=== PATIENT | male | born 1985 | race Caucasian/White ===

== ENCOUNTER 2017-07-03 18:07 | Emergency (ER) | payer OTHER, SELFPAY ==
[2017-07-03 18:13] VITALS: BP 135/72; PULSE 72; RESP 18; TEMP 36.8; O2SAT 98; BMI 26.6
--- NOTE | 2017-07-03 18:15 | HMH.EDEYEP ---
ED Disposition Clinical Impression: Acute follicular conjunctivitis of right eye Disposition: Home, Self-Care Condition on Discharge: Fair Additional Instructions: 1- eye rest. 2- cold compresses 3- start abx eye drops. 4- call eye docotor for full eye exam on Wednesday. 5- return if needed. Prescriptions: Ciprofloxacin HCl [Ciprofloxacin 0.3% Ophth Soln] 1 - 2 drops OP Q4HWA #1 ml - Critical Care Critical Care Time: No Attestation: On , the high probability of a clinically significant, sudden or life threatening deterioration of the following system(s) required my full and direct attention, intervention and personal management. The time I documented below is in addition to time spent performing reported procedures but includes the following listed in this critical care notation. Medical Decision Making - Laci Inquiry Pt receiving controlled substance: No Laci was queried for this patient: No Medical Decision Making Narrative: Discussed with the patient his I care and follow-up, I was more in favor that this is an allergy but he wanted to be on antibiotic. I advised him that I will start antibiotics but he will need to follow-up with the eye doctor for full exam he agreed. 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 He denies any pain. chief complaint: eye redness Onset (ago): day(s) (strated Yesterday) Onset description: gradual Duration: constant Location: right eye Eye Symptoms: redness Place: home Mechanism: none Associated symptoms: none Treatments Prior to Arrival: none - Related Data Patient tetanus UTD: No Previous Rx's Medication Instructions Recorded Ciprofloxacin HCl [Ciprofloxacin 1 - 2 drops OP Q4HWA #1 ml 07/03/17 0.3% Ophth Soln] Allergies Allergy/AdvReac Type Severity Reaction Status Date / Time No Known Allergies Allergy Unverified 04/13/17 15:09 [facility] History I have reviewed the patient's past medical history: Yes ROS Obtained: Yes All systems reviewed & no additional complaints Physical Exam - General General appearance: alert, in no apparent distress - Head Head exam: atraumatic, normocephalic, normal inspection - Eye Eye exam: Present: PERRL, EOMI, conjunctival injection, other (Follicular lesions at the fornix, no foreign bodies. ) - ENT ENT exam: Present: normal exam, normal oropharynx, mucous membranes moist, TM's normal bilaterally, normal external ear exam - Neck Neck exam: Present: normal inspection, full ROM, trachea midline. Absent: meningismus, lymphadenopathy - Chest Chest inspection: Present: normal inspection, symmetric chest wall rise. Absent: tenderness - Respiratory Respiratory exam: Present: normal lung sounds bilaterally. Absent: respiratory distress - Cardiovascular Cardiovascular exam: Present: regular rate, normal rhythm. Absent: JVD - Abdominal Exam Abdominal exam: Present: soft, normal bowel sounds. Absent: distention, tenderness, guarding - Extremities Exam Extremities exam: Present: normal inspection, full ROM, normal capillary refill. Absent: calf tenderness - Back Exam Back exam: Present: normal inspection. Absent: tenderness - Neurological Exam Neurological exam: Present: alert, oriented X3, CN II-XII intact, normal gait, motor sensory deficit - Psychiatric Psychiatric exam: Present: normal affect, normal mood - Skin Skin exam: Present: warm, dry, intact, normal color - Lymphatic Lymphatic Findings: no adenopathy
--- NOTE | 2017-07-03 18:18 | ED_ITS ---
ED Disposition Clinical Impression: Acute follicular conjunctivitis of right eye Disposition: Home, Self-Care Condition on Discharge: Fair Additional Instructions: 1- eye rest. 2- cold compresses 3- start abx eye drops. 4- call eye docotor for full eye exam on Wednesday. 5- return if needed. Prescriptions: Ciprofloxacin HCl [Ciprofloxacin 0.3% Ophth Soln] 1 - 2 drops OP Q4HWA #1 ml - Critical Care Critical Care Time: No Attestation: On , the high probability of a clinically significant, sudden or life threatening deterioration of the following system(s) required my full and direct attention, intervention and personal management. The time I documented below is in addition to time spent performing reported procedures but includes the following listed in this critical care notation. Medical Decision Making - Laci Inquiry Pt receiving controlled substance: No Laci was queried for this patient: No Medical Decision Making Narrative: Discussed with the patient his I care and follow-up, I was more in favor that this is an allergy but he wanted to be on antibiotic. I advised him that I will start antibiotics but he will need to follow-up with the eye doctor for full exam he agreed. 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 He denies any pain. chief complaint: eye redness Onset (ago): day(s) (strated Yesterday) Onset description: gradual Duration: constant Location: right eye Eye Symptoms: redness Place: home Mechanism: none Associated symptoms: none Treatments Prior to Arrival: none - Related Data Patient tetanus UTD: No Previous Rx's Medication Instructions Recorded Ciprofloxacin HCl [Ciprofloxacin 1 - 2 drops OP Q4HWA #1 ml 07/03/17 0.3% Ophth Soln] Allergies Allergy/AdvReac Type Severity Reaction Status Date / Time No Known Allergies Allergy Unverified 04/13/17 15:09 [facility] History I have reviewed the patient's past medical history: Yes ROS Obtained: Yes All systems reviewed & no additional complaints Physical Exam - General General appearance: alert, in no apparent distress - Head Head exam: atraumatic, normocephalic, normal inspection - Eye Eye exam: Present: PERRL, EOMI, conjunctival injection, other (Follicular lesions at the fornix, no foreign bodies. ) - ENT ENT exam: Present: normal exam, normal oropharynx, mucous membranes moist, TM's normal bilaterally, normal external ear exam - Neck Neck exam: Present: normal inspection, full ROM, trachea midline. Absent: meningismus, lymphadenopathy - Chest Chest inspection: Present: normal inspection, symmetric chest wall rise. Absent : tenderness - Respiratory Respiratory exam: Present: normal lung sounds bilaterally. Absent: respiratory distress - Cardiovascular Cardiovascular exam: Present: regular rate, normal rhythm. Absent: JVD - Abdominal Exam Abdominal exam: Present: soft, normal bowel sounds. Absent: distention, tenderness, guarding - Extremities Exam Extremities exam: Present: normal inspection, full ROM, normal capillary refill. Absent: calf tenderness - Back Exam Back exam: Present: normal inspection. Absent: tenderness - Neurological Exam Neurological ex
[2017-07-03 18:24] VITALS: BP 124/78; PULSE 72; RESP 18; TEMP 36.9; O2SAT 96
== END 2017-07-03 19:05 | disposition home or self-care (01) ==
LOC: ER 18:27
PROVIDERS: Emergency Provider Emergency Medicine; Family Provider Family Medicine
DX: H10.011 Acute follicular conjunctivitis, right eye (principal)
CPT/HCPCS: 99281

== ENCOUNTER 2023-04-03 05:16 | Observation (INO) | payer OTHER, SELFPAY ==
[2023-04-03] VITALS (21 sets, daily range): BP systolic 119–159; BP diastolic 68–88; PULSE 55–73; RESP 16–18; TEMP 36.5–37.3; O2SAT 95–99; BMI 28.7
--- NOTE | 2023-04-03 | IR_ITS ---
APPROVED REPORT Patient Location: Inpatient Inpatient Cost Engineer: OSBALDO Carmona RT (R) PROCEDURES Left heart catheterization INDICATION Non-STEMI Informed consent was obtained prior to the procedure. COMPLICATIONS None Estimated Blood Loss: Less than 10 ml TECHNIQUE One percent lidocaine used to anesthetize the right anterior aspect of the wrist. The right radial artery was accessed via the Seldinger technique. A 6 Vietnamese sheath was placed in the right radial artery. 2.5 mg of Verapamil, 800 mcg of nitroglycerin, 1mg Lidocaine and 5000 U Heparin were given through the arterial sheath. The papa catheter was also used to perform left heart catheterization, left ventriculogram and selective coronary angiogram. At the end of the procedure the sheath was removed good hemostasis was achieved using Traclet band, patient was transferred to the postop holding area in stable condition. ANGIOGRAPHIC RESULTS The left main artery Was a large vessel was divided in the circumflex and LAD. There is no significant disease in left main. The left anterior descending artery There is a large vessel which supplies a single large diagonal. At the ostium of the LAD there is a 30% stenosis. In the distal LAD there was 40 to 50% stenosis The circumflex artery Was a large vessel which supplied 2 obtuse marginals. In the second smaller obtuse marginal there appeared to be about a 40% stenosis. The right coronary artery Was a dominant vessel which supplied a large PDA. There was a 50 to 60% stenosis in the mid RCA. The CASILLAS ventriculogram reveals Hyperdynamic LV The left ventricular end-diastolic pressure 12 mmHg After reviewing the films decision was made to perform FFR in the right coronary artery. The lesion was crossed with the assist FFR system. The FFR 140 mg/g/min of adenosine was 0.88. This is nonsignificant. Therefore the lesion was deferred. IMPRESSION Moderate triple-vessel coronary artery disease but no significant obstructive disease. Preserved LV function Electronically signed by : Yuri Vitale, 04/03/2023 09:20:40
--- NOTE | 2023-04-03 05:23 | PC.NURSE ---
PT ARRIVED TO FLOOR AT THIS TIME
--- NOTE | 2023-04-03 05:32 | ECG_ITS ---
APPROVED REPORT Exam: Resting ECG HR:73 bpm ECG Measurements Heart Rate 73 AXES NM 157 P 77 QRSd 100 QRS 91 QT 384 T 62 QTc 409 Conclusion SINUS RHYTHM WITH SINUS ARRHYTHMIA BORDERLINE RIGHT AXIS DEVIATION [QRS AXIS > 90] NONSPECIFIC ST ELEVATION [0.05+ mV ST ELEVATION] BORDERLINE ECG UNCONFIRMED REPORT Electronically signed by : Laurent Gonsales MD 04/06/2023 16:52:52
--- NOTE | 2023-04-03 06:23 | EXP.HP ---
History of Present Illness *Admission Date: 04/03/23 *Reason for visit:: Chest pain *History of present illness: This is a very pleasant 38-year-old male with no significant past medical history except for tobacco abuse who [facility] further evaluation of NSTEMI. Patient reports several days ago he developed midsternal chest pain that was pressure-like in nature. He reported there was no aggravating or alleviating factors to his pain. He states that he woke up from a nap around 2 PM with chest pain and states that he had some episodes of diaphoresis with this. He sought treatment in the emergency department 3 days ago and was told that he had a notable cardiac arrhythmia intermittently while he was in the emergency department on 03/31. Transfer was attempted at that time but patient declined further workup and was discharged home. He presented back to [facility] today with similar pain. Upon arrival to the emergency department he was noted to be pain-free. No cardiac arrhythmias or ectopy noted on his bedside monitor while in the emergency department but he was noted to have ST depression in aVL. He endorses tobacco use since he was 13 years old smoking approximately 1 pack a day. He also endorses daily marijuana as well. Laboratory evaluation remarkable for elevated troponin of 3177, CPK of 2.51. 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 He was transferred here for further evaluation management. Upon arrival here he is noted to have midsternal chest pain. He received heparin, aspirin and Brilinta at the outside hospital. At the time of admission, repeat labs [facility] Disclaimer: The information contained in this section may have been updated after the patient was seen, as this information can be updated by other users. Surgical History H/O skin graft Family History Mother Stroke Social History (Updated 04/03/23 @ 05:51 by Mar Romero RN) Smoking Status: Current every day smoker tobacco type: cigarettes packs per day: 1 alcohol intake: never substance use type: marijuana current occupational status: other Travel in the last 8 weeks: None caffeine: No Review of Systems Constitutional Constitutional: Denies fever(s), Denies lethargy and Denies night sweats Eyes Eyes: Reports system reviewed and no additional complaints, except as documented ENT Ears, Nose, Mouth, and Throat: Reports system reviewed and no additional complaints, except as documented *Cardiovascular Cardiovascular: Reports chest pain, Reports chest pain at rest, Reports chest pain with activity, Reports dyspnea and Reports rapid heart rate *Respiratory Respiratory: Reports cough and Reports dyspnea *Gastrointestinal Gastrointestinal: Reports system reviewed and no additional complaints, except as documented *Genitourinary Genitourinary: Reports system reviewed and no additional complaints, except as documented *Musculoskeletal Musculoskeletal: Reports system reviewed and no additional complaints, except as documented *Neurologic Neurologic: Reports system reviewed and no additional complaints, except as documented Endocrine Endocrine: Reports system reviewed and no additional complaints, except as documented Meds Home Medications and Allergies Home Medications Medication Instructions Recorded Confirmed Type ciprofloxacin HCl 0.3 % eye drops 1 - 2 drops OP Q4HWA #1 mL 07/03/17 Rx New Prescriptions to Start Prescriptions: Allergies Allergy/AdvReac Type Severity Reaction Status Date / Time No Known Allergies Allergy Unverified 04/13/17 15:09 Exam Data for Last 24 hours Vital signs and Labs for Last 24 Hours: Temp Pulse Resp BP Pulse Ox O2 Del Method 98.5 F 73 18 159/82 H 99 Room
[2023-04-03 07:02] LABS: Basophils # 0.1 K/mm3 (0-0.2); Basophils % 0.4 % (0.1-2.0); Eosinophils # 0.3 K/mm3 (0.0-0.4); Hematocrit 43.4 % (42.0-52.0); Hemoglobin 14.8 g/dL (14.1-18.0); Lymphocytes # 2.3 K/mm3 (0.7-4.5); Lymphocytes % 14.8 % (10-50); Mean Corpuscular Hemoglobin 33.4 pg (27.0-31.2); Mean Corpuscular Volume 98.2 fl (80-94); Mean Platelet Volume 9.6 fl (7.4-10.4); Monocytes # 0.9 K/mm3 (0.1-1.0); Monocytes % 5.8 % (1.7-9.3); Neutrophils # 11.8 K/mm3 (1.8-7.8); Platelet Count 281 K/mm3 (142-424); Red Blood Count 4.42 M/mm3 (4.60-6.20); Red Cell Distribution Width 13.6 % (11.5-17.5); White Blood Count 15.3 K/mm3 (4.8-10.8)
[2023-04-03 07:05] LABS: Chloride 106 mmol/L (98-107)
[2023-04-03 07:06] LABS: Potassium 3.9 mmoL/L (3.5-5.1); Sodium 137 mmol/L (136-145)
[2023-04-03 07:08] LABS: Alanine Aminotransferase 29 U/L (12-78); Alkaline Phosphatase 103 U/L (38-126); Aspartate Amino Transferase 50 U/L (17-59); Bilirubin,Total 1.1 mg/dl (0.2-1.3); Blood Urea Nitrogen 8 mg/dl (9-20); Creatinine Clearance Estimated 153 mL/min (50-200); Estimated Glomerular Filt Rate 109 ml/min (>60); GFR (African American) 132 ML/MIN (>60)
[2023-04-03 07:09] LABS: Albumin Level 4.8 g/dl (3.5-5.0); Albumin/Globulin Ratio 1.4 (1.1-1.8); Anion Gap 11.9 mEq/L (5-15); Calcium 9.1 mg/dl (8.4-10.2); Carbon Dioxide 23 mmol/L (22.0-30.0); Globulin 3.4 g/dL (1.3-3.2); Glucose 112 mg/dl (74-100); Total Protein,Serum 8.2 g/dl (6.3-8.2)
[2023-04-03 07:10] LABS: INR 1.02 (0.9-1.1)
[2023-04-03 07:11] LABS: MANUAL DIFFERENTIAL MANUAL DIFFERENTIAL (MANUAL DIFF)
[2023-04-03 07:18] LABS: PTT Heparin (inpatient only) 29.3 Seconds (23.6-34.0)
[2023-04-03 07:24] LABS: Troponin I 2.49 ng/ml (0.00-0.034)
--- NOTE | 2023-04-03 07:31 | PC.NURSE ---
Called the critical tropnin to Dr Rob, Was told to call cardiology, Aby Arce RN is going to call cardiology
--- NOTE | 2023-04-03 07:35 | PC.NURSE ---
paged cardiology regarding troponin results.
--- NOTE | 2023-04-03 07:38 | PC.NURSE ---
spoke with [place]. calling in lab assistant team. repeat EKG. 180 of brilinta and 325 asa
[2023-04-03 07:39] LABS: Thyroid Stimulating Hormone 1.13 uIU/mL (0.465-4.68)
--- NOTE | 2023-04-03 07:44 | ECG_ITS ---
APPROVED REPORT Exam: Resting ECG HR:67 bpm ECG Measurements Heart Rate 67 AXES TN 162 P 74 QRSd 116 QRS 85 QT 382 T 64 QTc 397 Conclusion SINUS RHYTHM MODERATE INTRAVENTRICULAR CONDUCTION DELAY [110+ ms QRS DURATION] BORDERLINE ECG UNCONFIRMED REPORT Electronically signed by : Laurent Gonsales MD 04/04/2023 14:18:28
[2023-04-03 07:51] LABS: Cholesterol 226 mg/dl (140-200); Triglycerides 105 mg/dl (30-150); VLDL Cholesterol 21 mg/dL (0-40)
[2023-04-03 07:52] LABS: Chol/HDL Ratio 8.1 (1-3.5); HDL Cholesterol 28 mg/dl (40-60)
[2023-04-03 08:02] LABS: Direct LDL Cholesterol 173.55 mg/dL (100-129)
[2023-04-03 08:05] LABS: Eosinophils % 4 % (0-3); Lymphocytes % 15 % (10-50); Monocytes % 6 % (2-9); Neutrophils % 75 % (42-76); Total Cells Counted 100
[2023-04-03 08:06] LABS: Platelet Estimate Normal; RBC Morphology Normal
[2023-04-03 08:14] LABS: Hemoglobin A1C 5.3 % (4.0-6.0)
--- NOTE | 2023-04-03 08:14 | PC.NURSE ---
#20 initiated to RFA x1 attempt.
--- NOTE | 2023-04-03 08:15 | PC.NURSE ---
pt has been npo since 0 yesterday per him
--- NOTE | 2023-04-03 08:16 | PC.NURSE ---
pt does not want me to contact any family @ this time.
--- NOTE | 2023-04-03 08:28 | PC.NURSE ---
pt off floor with cath team
[2023-04-03 10:30] LABS: Troponin I 2.59 ng/ml (0.00-0.034)
[2023-04-03 11:35] LABS: Magnesium 1.9 mg/dl (1.6-2.3)
--- NOTE | 2023-04-03 11:53 | PC.NURSE ---
pt is doing well post cath. he denies any pain @ this time. radial site is clean and intact. vs stable
--- NOTE | 2023-04-03 16:02 | EXP.DC.SUM ---
General Admission date:: 04/03/23 Discharge date: 04/03/23 HPI HPI HPI: This is a very pleasant 38-year-old male with no significant past medical history except for tobacco abuse who presents as a transfer from [facility] for further evaluation of NSTEMI. Patient reports several days ago he developed midsternal chest pain that was pressure-like in nature. He reported there was no aggravating or alleviating factors to his pain. He states that he woke up from a nap around 2 PM with chest pain and states that he had some episodes of diaphoresis with this. He sought treatment in the emergency department 3 days ago and was told that he had a notable cardiac arrhythmia intermittently while he was in the emergency department on 03/31. Transfer was attempted at that time but patient declined further workup and was discharged home. He presented back to [facility] today with similar pain. Upon arrival to the emergency department he was noted to be pain-free. No cardiac arrhythmias or ectopy noted on his bedside monitor while in the emergency department but he was noted to have ST depression in aVL. He endorses tobacco use since he was 13 years old smoking approximately 1 pack a day. He also endorses daily marijuana as well. Laboratory evaluation remarkable for elevated troponin of 3177, CPK of 2.51. 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 He was transferred here for further evaluation management. Upon arrival here he is noted to have midsternal chest pain. He received heparin, aspirin and Brilinta at the outside hospital. At the time of admission, repeat labs Hospital Course Hospital Course Hospital Course: This is a very pleasant 38-year-old male with no significant past medical history except for tobacco abuse who presents as a transfer from [facility] for further evaluation of NSTEMI. Patient reports several days ago he developed midsternal chest pain that was pressure-like in nature. He reported there was no aggravating or alleviating factors to his pain. He states that he woke up from a nap around 2 PM with chest pain and states that he had some episodes of diaphoresis with this. He sought treatment in the emergency department 3 days ago and was told that he had a notable cardiac arrhythmia intermittently while he was in the emergency department on 03/31. Transfer was attempted at that time but patient declined further workup and was discharged home. He presented back to [facility] today with similar pain. Upon arrival to the emergency department he was noted to be pain-free. No cardiac arrhythmias or ectopy noted on his bedside monitor while in the emergency department but he was noted to have ST depression in aVL. He endorses tobacco use since he was 13 years old smoking approximately 1 pack a day. He also endorses daily marijuana as well. Laboratory evaluation remarkable for elevated troponin of 3177, CPK of 2.51. 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 He was transferred here for further evaluation management. Patient had Cardiac cath which was unremarkable per cardiology, no stents needed, I recommended performing echocardiography( I explained imprortance of doing echo and risks of not doing echo he verbalized understanding) to the patient but he does not want to stay but wishes to be discharged and mention he will follow up with the appointment\ with cardiology and establish PCP Patient was seen and evaluated at the bedside on the day of discharge. Patient is stable for discharge. Patient wishes to be discharged. All patient questions were answered and patient was given time to ask questions. Patient was discharged in stable condition. Patient understands that she can return to ER in case of any sudden changes in health. Total time spent on DC - 38 mins Exam Data for
--- NOTE | 2023-04-03 17:07 | PC.NURSE ---
pt has been received discharge education. awaiting a ride
--- NOTE | 2023-04-06 11:32 | CARE MANAGER ---
Patient called back related to hospital discharge. He did not have any new medications and I transferred him to cardiology to schedule a follow up appointment. Denies questions or concerns at this time. RAQUEL Roy
== END 2023-04-03 17:55 | disposition home or self-care (01) ==
PROVIDERS: Internal Medicine; Nurse Practitioner Acute Care; Admitting Provider Internal Medicine Adolescent Medicine; Visit Provider Internal Medicine Adolescent Medicine
DX: I21.4 Non-ST elevation (NSTEMI) myocardial infarction (principal); F17.210 Nicotine dependence, cigarettes, uncomplicated; F12.90 Cannabis use, unspecified, uncomplicated
CPT/HCPCS: 80053; 80061; 83036; 83735; 84439; 84443; 84484; 85007; 85025; 85610; 85730; 93005; 93458; 93571; 99152; 99153; C1725; C1769; G0378; J0153; J1644; Q9967

== ENCOUNTER → 2023-04-08 10:50 | Outpatient (CLI) | payer OTHER, SELFPAY | PROVIDERS: Visit Provider Physician Assistant | DX: I11.9 Hypertensive heart disease without heart failure (principal); I25.10 Atherosclerotic heart disease of native coronary artery without angina pectoris; I47.20 Ventricular tachycardia, unspecified; R00.2 Palpitations; R94.31 Abnormal electrocardiogram [ECG] [EKG]; E78.5 Hyperlipidemia, unspecified; Z72.0 Tobacco use | CPT/HCPCS: 93270 ==

== ENCOUNTER → 2023-04-21 15:05 | Outpatient (CLI) | payer OTHER, SELFPAY ==
--- NOTE | 2023-04-21 15:05 | CA_ITS ---
APPROVED REPORT EXAM: Comprehensive 2D, Doppler, and color-flow Echocardiogram Glass Cut Off Tender: GEORGIE Graves, RVS Ht: 5 ft 8 in Wt: 197lbs BSA: 2.03 BP: 120/78 mmHg Indications: CAD, Abn EKG, Hx-Vtach, Smoker, HTN, HLD, Palpitation, SOB Echo Enhancing Agent Comments: Technically difficult exam due to multiple machine failures, unable to preform Bubble study due to malfunctions 2D Dimensions Aortic Root 3.15 cm M: 3.1 - 3.7 LA Volume 48.80 mL Left Atrium 2.92 cm M: 3.0 - 4.0 LA Volume Index 24.04 mL/m2 (M/F) 16-34 RVID Base (AP4) 2.77 cm (M/F) 2.5-4.1 EF AP4 52.10 % LVOT 2.14 cm (M/F) 1.5-2.5 GL Strain -24.9 % M-Mode Dimensions RVDd 2.38 cm (0.9-2.6) LVDd 5.22 cm (3.5-5.7) Ao Diam 3.13 cm (2.0-3.7) LVDs 3.48 cm (3.5-5.7) IVSd 0.94 cm (0.6-1.1) PWd 0.90 cm (0.6-1.1) EF (Teich) 61.60% EPSs 0.91 cm FS 33.30% EDV (Teich) 130.70 mL TAPSE 2.67 (<1.7) ESV (Teich) 50.20 mL LV Diastology E Decel Time 169 (160-240 msec) E/A Ratio 1.2 MED E' 12.8 (>= 7 cm/sec) MED A' 10.10 cm/s E'/MED E' Ratio 5.67 (<= 14) LAT E' 16.8 (>= 10 cm/sec) LAT A' 7.40 cm/s E/LAT E' Ratio 4.32 (<= 14) Mitral Valve MV E Max Stephan. 73.0 (40-130 cm/s) MV A Velocity 60.0 (40-130 cm/s) E/A Ratio 1.21 MV Decel. Time 169 (160-240 ms) Pulmonary Valve MN End VMAX 157.0 cm/s Left Ventricle The left ventricle is normal size. The left ventricular systolic function is normal. The left ventricular ejection fraction is within the normal range. There is normal left ventricular wall thickness. There is normal LV segmental wall motion. The left ventricular diastolic function is normal. LVEF is 55%. Right Ventricle The right ventricle is normal size. The right ventricular systolic function is normal. Atria The left atrium size is normal. The right atrium size is normal. There is no Doppler evidence of interatrial shunt. Aortic Valve The aortic valve is normal in structure. The aortic valve is trileaflet. There is no aortic valvular stenosis. No aortic regurgitation is present. Mitral Valve The mitral valve is normal in structure. No evidence of mitral valve stenosis. Trace mitral regurgitation. Tricuspid Valve The tricuspid valve leaflets are thin and pliable. Trace tricuspid regurgitation. There is insufficient TR jet to estimate RVSP. Pulmonic Valve The pulmonary valve is normal in structure. Mild pulmonic regurgitation. Great Vessels The aortic root is normal in size. The ascending aorta is normal in size. IVC is normal in size and collapses >50% with inspiration. Pericardium There is no pericardial effusion. Other Information Study Quality: Technically Limited Conclusion Normal biventricular systolic function. No significant valvular stenosis or regurgitation. No Doppler evidence of interatrial shunt, unable to preform Bubble study due to malfunction during the exam. Electronically signed by : Shana Segovia MD 04/24/2023 22:39:58
== END ==
LOC: RT 15:05
PROVIDERS: PCP Internal Medicine; Visit Provider Physician Assistant
DX: I11.9 Hypertensive heart disease without heart failure (principal); I25.10 Atherosclerotic heart disease of native coronary artery without angina pectoris; I47.20 Ventricular tachycardia, unspecified; R00.2 Palpitations; R94.31 Abnormal electrocardiogram [ECG] [EKG]; E78.5 Hyperlipidemia, unspecified; Z72.0 Tobacco use
CPT/HCPCS: 93306

== ENCOUNTER 2023-08-05 18:11 | Emergency (ER) | payer OTHER, SELFPAY ==
--- NOTE | 2023-08-05 18:06 | ECG_ITS ---
APPROVED REPORT Exam: Resting ECG HR:62 bpm ECG Measurements Heart Rate 62 AXES OH 159 P 78 QRSd 100 QRS 95 QT 422 T 75 QTc 428 Conclusion SINUS RHYTHM BORDERLINE RIGHT AXIS DEVIATION [QRS AXIS > 90] -Hope Gaona MD Electronically signed by : HOPE GAONA, 08/05/2023 23:37:47
[2023-08-05 18:11] VITALS: BP 162/96; PULSE 64; RESP 22; TEMP 36.5; O2SAT 98; BMI 28.8
--- NOTE | 2023-08-05 18:13 | ED_ITS ---
Discharge Plan Disposition Patient Disposition: Left Against Medical Advice Chief Complaint: Chest Pain Prescriptions Prescriptions: No Action aspirin [Adult Low Dose Aspirin] 81 mg tablet,delayed release (DR/EC) 81 mg PO DAILY Qty: 90 3RF losartan 25 mg tablet 25 mg PO DAILY Qty: 90 3RF metoprolol succinate 25 mg tablet extended release 24 hr 25 mg PO QDAY Qty: 90 3RF clopidogrel [Plavix] 75 mg tablet 75 mg PO QDAY Qty: 90 3RF atorvastatin 40 mg tablet 40 mg PO DAILY Qty: 90 3RF pantoprazole [Protonix] 40 mg tablet,delayed release (DR/EC) 40 mg PO DAILY Qty: 90 3RF Referrals Follow up/Referrals: Jesus Williamson MD [Staff Physician] - See instructions Provider,MD Eileen [Primary Care Provider] - See instructions Clinical Impressions Clinical Impression: Left against medical advice Instructions Patient Instructions: DI for Heart Attack Discharge ED Provider: Hope Gaona HPI <DON Wills - Last Filed: 08/05/23 18:13> General Chief Complaint: Chest Pain Stated Complaint: Chest Pressure Time Seen by Provider: 08/05/23 18:13 Related Data Previous Rx's Medication Instructions Recorded aspirin 81 mg tablet,delayed 81 mg PO DAILY #90 tabs 04/08/23 release (Adult Low Dose Aspirin) atorvastatin 40 mg tablet 40 mg PO DAILY #90 tabs 04/08/23 clopidogrel 75 mg tablet (Plavix) 75 mg PO QDAY #90 tabs 04/08/23 losartan 25 mg tablet 25 mg PO DAILY #90 tabs 04/08/23 metoprolol succinate 25 mg 25 mg PO QDAY #90 tabs 04/08/23 tablet,extended release 24 hr pantoprazole 40 mg tablet,delayed 40 mg PO DAILY #90 tabs 04/15/23 release (Protonix) Allergies Allergy/AdvReac Type Severity Reaction Status Date / Time No Known Allergies Allergy Verified 04/15/23 11:48 <Hope Gaona MD - Last Filed: 08/05/23 23:01> History of Present Illness HPI narrative: 38-year-old male with previous medical history of NSTEMI and tobacco use presents with 1 hour of sudden onset chest pain that radiates to his back, shortness of breath, nausea, generalized weakness. He states this feels similar to the prior episode of chest pain that was associated with an NSTEMI in March. He was playing fortnight when this began, not exerting himself. Patient states only drug use today was marijuana. No shortness of breath, palpitations, recent fevers, or other complaints. [facility] <DON Wills - Last Filed: 08/05/23 18:13> [facility] Disclaimer: The information contained in this section may have been updated after the patient was seen, as this information can be updated by other users. Medical History NSTEMI (non-ST elevated myocardial infarction) HLD (hyperlipidemia) HTN (hypertension) Abnormal electrocardiogram [ECG] [EKG] Coronary artery disease Tobacco abuse Type 1 myocardial infarction Acute follicular conjunctivitis of right eye Surgical History H/O skin graft Family History Mother Stroke Social History Smoking Status: Current every day smoker tobacco type: cigarettes packs per day: 1 alcohol intake: never substance use type: marijuana current occupational status: other Travel in the last 8 weeks: None caffeine: No <DON Wills - Last Filed: 08/05/23 18:13> ROS Obtained: Yes Systems reviewed as appropriate & no additional complaints except as documented Physical Exam <DON Wills - Last Filed: 08/05/23 18:13> General General appearance: alert and in no apparent distress Head Head exam: atraumatic and normal inspection Eye Eye exam: Present normal appearance, PERRL and EOMI ENT ENT exam: Present normal exam, normal oropharynx and mucous membranes moist Neck Neck exam: Present normal inspection, full ROM and trachea midline; Absent lymphadenopathy Chest Chest inspection: Present normal inspection and symmetric chest wall rise Respiratory Respiratory exam: Present normal lung sounds bilaterally; Absent accessory muscle use Cardiovascular Cardiovascular exam: Present regular rate, normal rhythm, normal heart sounds, +S1 and +S2 Abdominal Exam Abdominal exam: Present soft and normal bowel sounds; Absent tenderness, guarding or rebound Extremities Exam Extremities exam: Present normal inspection and full ROM Neurological Exam Neurological exam: Present alert, oriented X3 and CN II-XII intact Psychiatric Psychiatric exam: Present normal affect and normal mood Skin Skin exam: Present warm, dry and normal color Lymphatic Lymphatic Findings: no adenopathy <Hope Gaona MD - Last Filed: 08/05/23 23:01> General General appearance: other (Uncomfortable and toxic appearing. Moderate tachypnea.) ENT ENT exam: Present mucous membranes dry Neurological Exam Neurological exam: Absent motor sensory deficit HEART Score <Hope Gaona MD - Last Filed: 08/05/23 23:01> HEART Score HEART Score assessment performed?: Yes History (anamnesis): Highly suspicious ECG: Normal Age: <45 years Risk factors: Atherosclerosis history Troponin: > 3x normal limit HEART Score: 6 Critical Care <Hope Gaona MD - Last Filed: 08/05/23 23:01> Critical Care Time Critical Care Time: Yes Attestation: On 08/05/23, the high probability of a clinically significant, sudden or life threatening deterioration of the following system(s) required my full and direct attention, intervention and personal management. The time I documented below is in addition to time spent performing reported procedures but includes the following listed in this critical care notation. Total Time Total Critical Care Time: 30 Medical Decision Making <DON Wills - Last Filed: 08/05/23 18:13> Vital Signs Vital Signs: 08/05/23 18:11 08/05/23 19:30 08/05/23 20:00 Temperature 97.7 F Temperature Source Oral Pulse Rate 64 61 Pulse Rate [Right] 64 Respiratory Rate 22 13 13 Blood Pressure 134/81 147/89 H Blood Pressure [Right Arm] 162/96 H Blood Pressure Mean [Right Arm] 118 Blood Pressure Source [Right Arm] Automatic Cuff Blood Pressure Position [Right Arm] Supine 02 Sat by Pulse Oximetry 98 98 100 Oxygen Delivery Method Room Air 08/05/23 21:31 Temperature Temperature Source Pulse Rate 71 Pulse Rate [Right] Respiratory Rate 23 Blood Pressure 133/79 Blood Pressure [Right Arm] Blood Pressure Mean [Right Arm] Blood Pressure Source [Right Arm] Blood Pressure Position [Right Arm] 02 Sat by Pulse Oximetry 98 Oxygen Delivery Method Lab Data Labs: Lab Results 04/11/24 18:27: WBC 12.6 H, RBC 4.79, Hgb 16.3, Hct 48.7, MCV 101.6 H, MCH 33.9 H, MCHC 33.4, RDW 14.2, Plt Count 390, MPV 9.6, Neut % (Auto) 69.6, Lymph % (Auto) 21.8, Jackson % (Auto) 4.7, Eos % (Auto) 3.0, Baso % (Auto) 0.9, Neut # (Auto) 8.7 H, Lymph # (Auto) 2.7, Jackson # (Auto) 0.6, Eos # (Auto) 0.4, Baso # (Auto) 0.1, VBG pH 7.50 H, VBG pCO2 26.6 L, VBG pO2 34.4, VBG HCO3 20.3 L, VBG Total CO2 21.1 L, VBG O2 Saturation 78.5 H, VBG Base Excess -2.8 L, VBG Lactic Acid 5.0 H, Sodium 138, Potassium 3.7, Chloride 105, Carbon Dioxide 21 L, Anion Gap 15.7 H, BUN 6 L, Creatinine 0.80, Estimated Creat Clear 154, Estimated GFR 109, Est GFR ( Amer) 132, Glucose 158 H, Calcium 10.2, Total Bilirubin 0.8, AST 46, ALT 65, Alkaline Phosphatase 152 H, Troponin I < 0.01, Total Protein 8.0, Albumin 4.8, Globulin 3.2, Albumin/Globulin Ratio 1.5 08/05/23 21:15: Troponin I 0.67 H 08/05/23 21:30: Urine Opiates Screen Positive H, Urine Methadone Screen Negative, Ur Barbituates Screen Negative, Ur Phencyclidine Scrn Negative, Ur Amphetamines Screen Negative, U Benzodiazepines Scrn Negative, Urine Cocaine Screen Negative, U Marijuana (THC) Screen Positive H 08/05/23 18:27 08/05/23 18:27 Response Orders (Tests/Meds): ED MEDICATIONS Generic Name Dose Route Start Last Admin Trade Name Freq PRN Reason Stop Dose Admin Sodium Chloride 10 ml 08/05/23 19:00 08/05/23 19:05 Sodium Chloride 0.9% 10ml Syr (Rad Only) IV 09/04/23 18:59 10 ml NEEDED PRN Administration Maintain IV Site Discontinued Medications Generic Name Dose Route Start Last Admin Trade Name Elicia PRN Reason Stop Dose Admin Acetaminophen 1,000 mg 08/05/23 18:26 08/05/23 18:39 Acetaminophen 1,000mg/100ml Vial IV 08/05/23 18:27 1,000 mg ONCE ONE Administration Aspirin 325 mg 08/05/23 22:37 Aspirin 325mg Tablet PO 08/05/23 22:38 ONCE ONE Clopidogrel Bisulfate 300 mg 08/05/23 22:37 Clopidogrel 300mg Tablet PO 08/05/23 22:38 ONCE ONE Lactated Ringer's 1,000 mls @ 999 mls/hr 08/05/23 18:29 08/05/23 18:39 Lactated Ringer's 1000 Ml Bag IV 08/05/23 19:29 999 mls/hr .Q1H1M ONE Administration Iopamidol 100 ml 08/05/23 19:00 08/05/23 19:05 Iopamidol-370 (76%);100ml Bottle IV 08/05/23 19:01 100 ml ONCE ONE Administration Morphine Sulfate 5 mg 08/05/23 18:26 08/05/23 18:40 Morphine 10mg/Ml Syringe IV 08/05/23 18:27 Not Given ONCE ONE Morphine Sulfate 4 mg 08/05/23 18:39 08/05/23 18:42 Morphine 4mg/Ml Syringe IV 08/05/23 18:40 4 mg ONCE ONE Administration Ondansetron HCl 4 mg 08/05/23 18:26 08/05/23 18:39 Ondansetron 4mg/2ml Vial IV 08/05/23 18:27 4 mg ONCE ONE Administration Sodium Chloride 50 ml 08/05/23 19:00 08/05/23 19:05 0.9 % Sodium Chloride 50 Ml Vial IV 08/05/23 19:01 50 ml ONCE ONE Administration ORDERS Category Date Time Status CT angio abdomen pelvis Stat Cat Scan 08/05/23 18:26 Completed CTA Chest [CT angio chest - dissection] Stat Cat Scan 08/05/23 18:26 Completed CBC [Complete Blood Count Auto Diff] Stat Lab 08/05/23 18:27 Completed CMP [Comprehensive Metabolic Panel] Stat Lab 08/05/23 18:27 Completed Trop I [Troponin I] Stat Lab 08/05/23 18:27 Completed Troponin I Q3H Lab 08/05/23 21:15 Completed Troponin I Q3H Lab 08/06/23 00:30 Ordered UDS [Drug Screen,Urine] Stat Lab 08/05/23 21:30 Completed Blood Culture Stat Micro 08/05/23 20:25 Received VBG [Venous Blood Gas] Stat RT 08/05/23 18:27 Completed <Hope Gaona MD - Last Filed: 08/05/23 23:01> Laci Inquiry Pt receiving controlled substance: No Laci was queried for this patient: No Vital Signs Vital Signs: 08/05/23 18:11 08/05/23 19:30 08/05/23 20:00 Temperature 97.7 F Temperature Source Oral Pulse Rate 64 61 Pulse Rate [Right] 64 Respiratory Rate 22 13 13 Blood Pressure 134/81 147/89 H Blood Pressure [Right Arm] 162/96 H Blood Pressure Mean [Right Arm] 118 Blood Pressure Source [Right Arm] Automatic Cuff Blood Pressure Position [Right Arm] Supine 02 Sat by Pulse Oximetry 98 98 100 Oxygen Delivery Method Room Air 08/05/23 21:31 Temperature Temperature Source Pulse Rate 71 Pulse Rate [Right] Respiratory Rate 23 Blood Pressure 133/79 Blood Pressure [Right Arm] Blood Pressure Mean [Right Arm] Blood Pressure Source [Right Arm] Blood Pressure Position [Right Arm] 02 Sat by Pulse Oximetry 98 Oxygen Delivery Method Lab Data Labs: Lab Results 08/05/23 18:27: WBC 12.6 H, RBC 4.79, Hgb 16.3, Hct 48.7, MCV 101.6 H, MCH 33.9 H, MCHC 33.4, RDW 14.2, Plt Count 390, MPV 9.6, Neut % (Auto) 69.6, Lymph % (Auto) 21.8, Jackson % (Auto) 4.7, Eos % (Auto) 3.0, Baso % (Auto) 0.9, Neut # (Auto) 8.7 H, Lymph # (Auto) 2.7, Jackson # (Auto) 0.6, Eos # (Auto) 0.4, Baso # (Auto) 0.1, VBG pH 7.50 H, VBG pCO2 26.6 L, VBG pO2 34.4, VBG HCO3 20.3 L, VBG Total CO2 21.1 L, VBG O2 Saturation 78.5 H, VBG Base Excess -2.8 L, VBG Lactic Acid 5.0 H, Sodium 138, Potassium 3.7, Chloride 105, Carbon Dioxide 21 L, Anion Gap 15.7 H, BUN 6 L, Creatinine 0.80, Estimated Creat Clear 154, Estimated GFR 109, Est GFR ( Amer) 132, Glucose 158 H, Calcium 10.2, Total Bilirubin 0.8, AST 46, ALT 65, Alkaline Phosphatase 152 H, Troponin I < 0.01, Total Protein 8.0, Albumin 4.8, Globulin 3.2, Albumin/Globulin Ratio 1.5 08/05/23 21:15: Troponin I 0.67 H 08/05/23 21:30: Urine Opiates Screen Positive H, Urine Methadone Screen Negative, Ur Barbituates Screen Negative, Ur Phencyclidine Scrn Negative, Ur Amphetamines Screen Negative, U Benzodiazepines Scrn Negative, Urine Cocaine Screen Negative, U Marijuana (THC) Screen Positive H Response Orders (Tests/Meds): ED MEDICATIONS Generic Name Dose Route Start Last Admin Trade Name Freq PRN Reason Stop Dose Admin Sodium Chloride 10 ml 08/05/23 19:00 08/05/23 19:05 Sodium Chloride 0.9% 10ml Syr (Rad Only) IV 09/04/23 18:59 10 ml NEEDED PRN Administration Maintain IV Site Discontinued Medications Generic Name Dose Route Start Last Admin Trade Name Freq PRN Reason Stop Dose Admin Acetaminophen 1,000 mg 08/05/23 18:26 08/05/23 18:39 Acetaminophen 1,000mg/100ml Vial IV 08/05/23 18:27 1,000 mg ONCE ONE Administration Aspirin 325 mg 08/05/23 22:37 Aspirin 325mg Tablet PO 08/05/23 22:38 ONCE ONE Clopidogrel Bisulfate 300 mg 08/05/23 22:37 Clopidogrel 300mg Tablet PO 08/05/23 22:38 ONCE ONE Lactated Ringer's 1,000 mls @ 999 mls/hr 08/05/23 18:29 08/05/23 18:39 Lactated Ringer's 1000 Ml Bag IV 08/05/23 19:29 999 mls/hr .Q1H1M ONE Administration Iopamidol 100 ml 08/05/23 19:00 08/05/23 19:05 Iopamidol-370 (76%);100ml Bottle IV 08/05/23 19:01 100 ml ONCE ONE Administration Morphine Sulfate 5 mg 08/05/23 18:26 08/05/23 18:40 Morphine 10mg/Ml Syringe IV 08/05/23 18:27 Not Given ONCE ONE Morphine Sulfate 4 mg 08/05/23 18:39 08/05/23 18:42 Morphine 4mg/Ml Syringe IV 08/05/23 18:40 4 mg ONCE ONE Administration Ondansetron HCl 4 mg 08/05/23 18:26 08/05/23 18:39 Ondansetron 4mg/2ml Vial IV 08/05/23 18:27 4 mg ONCE ONE Administration Sodium Chloride 50 ml 08/05/23 19:00 08/05/23 19:05 0.9 % Sodium Chloride 50 Ml Vial IV 08/05/23 19:01 50 ml ONCE ONE Administration ORDERS Category Date Time Status CT angio abdomen pelvis Stat Cat Scan 08/05/23 18:26 Completed CTA Chest [CT angio chest - dissection] Stat Cat Scan 08/05/23 18:26 Completed CBC [Complete Blood Count Auto Diff] Stat Lab 08/05/23 18:27 Completed CMP [Comprehensive Metabolic Panel] Stat Lab 08/05/23 18:27 Completed Trop I [Troponin I] Stat Lab 08/05/23 18:27 Completed Troponin I Q3H Lab 08/05/23 21:15 Completed Troponin I Q3H Lab 08/06/23 00:30 Ordered UDS [Drug Screen,Urine] Stat Lab 08/05/23 21:30 Completed Blood Culture Stat Micro 08/05/23 20:25 Received VBG [Venous Blood Gas] Stat RT 08/05/23 18:27 Completed ECG Data Tracing #1: ECG initial impression date: 08/05/23 ECG initial impression time: 18:08 ECG normal with no acute: arrhythmias, ischemia, conduction abnormalities, chamber hypertrophy Normal Sinus Rhythm: Yes MDM Narrative Medical Decision Narrative: Patient was evaluated immediately upon arrival and was concerning for his toxic appearance. Fingerstick blood glucose was 147. EKG was immediately obtained and showed normal sinus rhythm with no STEMI. His presentation was concerning for ACS, PE, aortic dissection given chest pain radiates to the back, NSTEMI, pneumothorax, endocrinologic and metabolic causes, and less likely but did consider sepsis given his discomfort, generalized weakness, and dry mucous membranes. For this reason obtained CTA chest abdomen pelvis emergently and labs including troponin, CBC, CMP, VBG. These I independently reviewed and interpreted and were significant for no aortic dissection or PE or pneumonia or pneumothorax or other emergent causes of chest pain. CBC and CMP and VBG were significant for respiratory alkalosis. Troponin initially was undetectable but on repeat was elevated concerning for NSTEMI. Chest pain had not resolved after receiving morphine. EKG I independently reviewed and interpreted was initially consistent with normal sinus rhythm and on repeat was again consistent with normal sinus rhythm obtained after troponin elevation. Due to concern for NSTEMI and patient having had an ischemic event when his chest pain had been severe, consulted cardiology with interactive discussion and they recommended admission for further testing in the morning. I discussed this with patient and after he initially agreed to admission he later stated that he had considered the risk of and disable meant and other complications but wanted to leave to be able to go home and smoke cigarettes. I discussed with him options including ensuring he gets food and something to drink and nicotine patches but patient is insistent upon leaving AGAINST MEDICAL ADVICE despite understanding the risk of and permanent disability. Discharged AGAINST MEDICAL ADVICE.
--- NOTE | 2023-08-05 18:15 | PC.NURSE ---
During triage pt began shouting I am not answering any more fucking questions . I let him know we are just trying to help him and unfortunately need to understand what brought about his chest pain and his medical history. He further stated Well I'm done, now fucking quit . Dr. Gaona made aware of him refusing to answer general questions regarding his reason for visit and PMH. EMS left phone number for pt's mother. I asked if he would like I us to call her or update her on his POC here and he shout Just stop .
--- NOTE | 2023-08-05 18:18 | PC.NURSE ---
bedside FS 147. Dr. Gaona at bedside
--- NOTE | 2023-08-05 18:25 | PC.NURSE ---
Attempting u/s guided IV placement
[2023-08-05 18:26] VITALS: BMI 28.8
--- NOTE | 2023-08-05 18:26 | CT_ITS ---
PROCEDURE INFORMATION: Exam: CTA Chest With Contrast Exam date and time: 08/05/2023 6:36 PM Age: 38 years old Clinical indication: Chest wall pain; Additional info: Chest pain radiating to back TECHNIQUE: Imaging protocol: Computed tomographic angiography of the chest with contrast. Exam focused on the arteries. 3D rendering (Not supervised by radiologist): MIP and/or 3D reconstructed images were created by the technologist. Radiation optimization: All CT scans at this facility use at least one of these dose optimization techniques: automated exposure control; mA and/or kV adjustment per patient size (includes targeted exams where dose is matched to clinical indication); or iterative reconstruction. Contrast material: ISOVUE 370; Contrast volume: 100 ml; Contrast route: INTRAVENOUS (IV); COMPARISON: CR CHEST SINGLE VIEW/PORTABLE 04/03/2023 3:27 AM FINDINGS: Pulmonary arteries: No CT evidence for pulmonary embolism. Aorta: Unremarkable. No aortic aneurysm. No aortic dissection. Lungs: No acute infiltrates. Small lung volumes with mild bibasilar atelectasis. Pleural spaces: Unremarkable. No pneumothorax. No pleural effusion. Heart: Unremarkable. No cardiomegaly. No pericardial effusion. Lymph nodes: Unremarkable. No pathologically enlarged lymph nodes are identified. Liver: The liver appears within normal limits. Pancreas: The pancreas is normal. Spleen: The spleen is normal. Adrenal glands: The adrenal glands appear within normal limits. Kidneys and ureters: The kidneys are normal. Intraperitoneal space: No free air. No evidence for focal fluid collection or ascites. No evidence for omental thickening. Urinary bladder: The bladder appears within normal limits. No wall thickening. Bones/joints: Unremarkable. No acute fracture. Soft tissues: The visualize subcutaneous soft tissues and abdominal wall and flank wall appear unremarkable. IMPRESSION: 1. No CT evidence for pulmonary embolism , aortic dissection or aneurysm.. 2. No acute infiltrates. Small lung volumes with mild bibasilar atelectasis.
--- NOTE | 2023-08-05 18:26 | CT_ITS ---
PROCEDURE INFORMATION: Exam: CTA Abdomen and Pelvis With Contrast Exam date and time: 08/05/2023 6:36 PM Age: 38 years old Clinical indication: Abdominal pain; Acute; Additional info: Chest pain radiating to back TECHNIQUE: Imaging protocol: Computed tomographic angiography of the abdomen and pelvis with contrast. Exam focused on the arteries. 3D rendering (Not supervised by radiologist): MIP and/or 3D reconstructed images were created by the technologist. Radiation optimization: All CT scans at this facility use at least one of these dose optimization techniques: automated exposure control; mA and/or kV adjustment per patient size (includes targeted exams where dose is matched to clinical indication); or iterative reconstruction. Contrast material: ISOVUE 370; Contrast volume: 100 ml; Contrast route: INTRAVENOUS (IV); COMPARISON: CT ANGIO CHEST 08/05/2023 6:36 PM FINDINGS: Aorta: No aortic aneurysm. No aortic dissection. Celiac trunk and mesenteric arteries: No occlusion or significant stenosis. Renal arteries: No occlusion or significant stenosis. Right iliac arteries: No occlusion or significant stenosis. Left iliac arteries: No occlusion or significant stenosis. Liver: No mass. Gallbladder and bile ducts: Unremarkable. No calcified stones. No ductal dilation. Pancreas: Unremarkable. No mass. No ductal dilation. Spleen: Unremarkable. No splenomegaly. Adrenal glands: Unremarkable. No mass. Kidneys and ureters: Unremarkable. No solid mass. No hydronephrosis. Stomach and bowel: Unremarkable. No obstruction. No mucosal thickening. Appendix: No evidence of appendicitis. Intraperitoneal space: Unremarkable. No free air. No significant fluid collection. Lymph nodes: Unremarkable. No enlarged lymph nodes. Urinary bladder: Unremarkable. No mass. Reproductive: Unremarkable as visualized. Bones/joints: No acute fracture. Soft tissues: Unremarkable. IMPRESSION: Unremarkable CTA.
--- NOTE | 2023-08-05 18:27 | PC.NURSE ---
Dr. Gaona would like to go ahead and take pt to CT scan instead of waiting for labs
--- NOTE | 2023-08-05 18:33 | PC.NURSE ---
Respiratory notified of VBG order and blood being sent to lab
[2023-08-05] MEDS: ACETAMINOPHEN 1,000MG/100ML VIAL 1000 MG IV (18:39)
[2023-08-05] MEDS: ONDANSETRON 4MG/2ML VIAL 4 MG IV (18:39)
[2023-08-05] MEDS: LACTATED RINGERS 1000ML 1,000 ML 999 ML IV (18:39)
[2023-08-05] MEDS: MORPHINE 4MG/ML SYRINGE 4 MG IV (18:42)
[2023-08-05 18:43] LABS: Basophils # 0.1 K/mm3 (0-0.2); Basophils % 0.9 % (0.1-2.0); Eosinophils # 0.4 K/mm3 (0.0-0.4); Hematocrit 48.7 % (42.0-52.0); Hemoglobin 16.3 g/dL (14.1-18.0); Lymphocytes # 2.7 K/mm3 (0.7-4.5); Lymphocytes % 21.8 % (10-50); Mean Corpuscular HGB Conc 33.4 g/dL (31.8-35.4); Mean Corpuscular Hemoglobin 33.9 pg (27.0-31.2); Mean Corpuscular Volume 101.6 fl (80-94); Mean Platelet Volume 9.6 fl (7.4-10.4); Monocytes # 0.6 K/mm3 (0.1-1.0); Monocytes % 4.7 % (1.7-9.3); Neutrophils # 8.7 K/mm3 (1.8-7.8); Neutrophils % 69.6 % (37.0-80.0); Platelet Count 390 K/mm3 (142-424); Red Blood Count 4.79 M/mm3 (4.60-6.20); Red Cell Distribution Width 14.2 % (11.5-17.5); White Blood Count 12.6 K/mm3 (4.8-10.8)
--- NOTE | 2023-08-05 18:45 | PC.NURSE ---
Per CT, they can not get the IV to flush. notified and she will attempt another u/s guided IV
[2023-08-05 18:51] LABS: Chloride 105 mmol/L (98-107); Potassium 3.7 mmoL/L (3.5-5.1); Sodium 138 mmol/L (136-145)
[2023-08-05 18:54] LABS: Alanine Aminotransferase 65 U/L (12-78); Albumin Level 4.8 g/dl (3.5-5.0); Albumin/Globulin Ratio 1.5 (1.1-1.8); Alkaline Phosphatase 152 U/L (38-126); Anion Gap 15.7 mEq/L (5-15); Aspartate Amino Transferase 46 U/L (17-59); Bilirubin,Total 0.8 mg/dl (0.2-1.3); Blood Urea Nitrogen 6 mg/dl (9-20); Carbon Dioxide 21 mmol/L (22.0-30.0); Creatinine Clearance Estimated 154 mL/min (50-200); Estimated Glomerular Filt Rate 109 ml/min (>60); GFR (African American) 132 ML/MIN (>60); Globulin 3.2 g/dL (1.3-3.2)
[2023-08-05 18:55] LABS: Calcium 10.2 mg/dl (8.4-10.2); Glucose 158 mg/dl (74-100)
[2023-08-05] MEDS: 0.9 % SODIUM CHLORIDE 50 ML VIAL IV (19:05)
[2023-08-05] MEDS: IOPAMIDOL-370 (76%);100ML BOTTLE 100 ML IV (19:05)
[2023-08-05] MEDS: SODIUM CHLORIDE 0.9% 10ML SYR (RAD ONLY) 10 ML IV (19:05)
[2023-08-05 19:12] LABS: Troponin I < 0.01 ng/ml (0.00-0.034)
[2023-08-05 19:30] VITALS: BP 134/81; PULSE 64; RESP 13; O2SAT 98
[2023-08-05 19:40] LABS: VBG Base Excess -2.8 mmol/L (-2.4-2.3); VBG HCO3 20.3 mmol/L (23-30); VBG Oxygen Saturation 78.5 % (50-70); VBG PCO2 26.6 mmol/L (35-51); VBG PO2 34.4 mmol/L (28-40); VBG Total CO2 21.1 mmol/L (23-27)
[2023-08-05 20:00] VITALS: BP 147/89; PULSE 61; RESP 13; O2SAT 100
--- NOTE | 2023-08-05 20:12 | PC.NURSE ---
I spoke with Amna in lab, she is going to come draw the second set of blood cultures.
--- NOTE | 2023-08-05 20:15 | PC.NURSE ---
I rounded on the pt, he asked for some water to drink. Per [facility] OCHOA he is NPO at this time. pt states he has no other requests or complaints at this time. call alyssa in reach.
[2023-08-05 21:31] VITALS: BP 133/79; PULSE 71; RESP 23; O2SAT 98
[2023-08-05 21:52] LABS: Troponin I 0.67 ng/ml (0.00-0.034)
[2023-08-05 22:07] LABS: Benzodiazepines Screen,Urine Negative ng/ml (<200)
[2023-08-05 22:08] LABS: Amphetamine/Metha Screen,Urine Negative ng/ml (<1000); Barbiturates Screen,Urine Negative ng/ml (<200)
[2023-08-05 22:09] LABS: Cannabinoid Screen,Urine Positive ng/ml (<50); Cocaine Screen,Urine Negative ng/ml (<300)
[2023-08-05 22:10] LABS: Methadone Screen,Urine Negative ng/ml (<300)
[2023-08-05 22:11] LABS: Opiate Screen,Urine Positive ng/ml (<300); Phencyclidine Screen,Urine Negative ng/ml (<25)
--- NOTE | 2023-08-05 22:13 | ECG_ITS ---
APPROVED REPORT Exam: Resting ECG HR:66 bpm ECG Measurements Heart Rate 66 AXES MT 156 P 78 QRSd 93 QRS 101 QT 408 T 54 QTc 422 Conclusion SINUS RHYTHM No STEMI -Hope Gaona MD Electronically signed by : HOPE GAONA, 08/05/2023 23:43:04
--- NOTE | 2023-08-05 22:48 | PC.NURSE ---
notified bath house attendant of admission
--- NOTE | 2023-08-05 22:51 | PC.NURSE ---
Admitting notified for OBS, 214, Elevated Troponin, Hospitalist
[2023-08-05 22:56] VITALS: BP 134/81; PULSE 68; RESP 18; TEMP 36.5; O2SAT 98
[2023-08-05 23:40] LABS: Reflex Lactic Add Lactic Reflex
== END 2023-08-05 22:57 | disposition left against medical advice (07) ==
PROVIDERS: Emergency Provider Emergency Medicine
DX: R07.9 Chest pain, unspecified (principal); R06.02 Shortness of breath; R11.0 Nausea; R53.1 Weakness; F17.210 Nicotine dependence, cigarettes, uncomplicated; I11.9 Hypertensive heart disease without heart failure; I25.10 Atherosclerotic heart disease of native coronary artery without angina pectoris; E78.5 Hyperlipidemia, unspecified; Z79.01 Long term (current) use of anticoagulants; Z86.79 Personal history of other diseases of the circulatory system
CPT/HCPCS: 36415; 71275; 74174; 80053; 80307; 82803; 84484; 85025; 87040; 93005; 96361; 96374; 96375; 99285; J0131; J2405; Q9967

== ENCOUNTER 2023-08-19 08:22 | Day surgery (SDC) | payer OTHER, SELFPAY ==
[2023-08-19] VITALS (12 sets, daily range): BP systolic 129–147; BP diastolic 76–96; PULSE 53–65; RESP 16–18; TEMP 36.9; O2SAT 94–99; BMI 29.7
--- NOTE | 2023-08-19 07:04 | IR_ITS ---
APPROVED REPORT Patient Location: Outpatient Senior Quality Control Inspector: OSBALDO Hernandez RT (R) PROCEDURES Selective coronary angiogram Drug-eluting stent deployment to the ostial proximal LAD Drug-eluting stent deployment to the proximal to mid dominant right coronary INDICATION Recent non-ST elevation myocardial infarction, Coronary artery disease, Angina pectoris Informed consent was obtained prior to the procedure. COMPLICATIONS None Estimated Blood Loss: Less than 10 mls TECHNIQUE One percent lidocaine used to anesthetize the right anterior aspect of the wrist. The right radial artery was accessed via the Seldinger technique. A 6 [place] sheath was placed in the right radial artery. 2.5 mg of Verapamil, 800 mcg of nitroglycerin, 1mg Lidocaine and 5000 U Heparin were given through the arterial sheath. The papa catheter was also used to perform selective coronary angiogram. At the end the diagnostic angiogram therapeutic heparin was administered giving a therapeutic ACT and the guide cath was placed in left main artery followed by Choice PT extra-support wire in the LAD. A 3 mm x 26 mm Yonathan frontier stent was deployed at 20 caesar in the ostial proximal LAD reducing the stenosis. A 3.5 x 12 mm noncompliant balloon was deployed at 20 and then 24 caesar in the ostial proximal portion of the stent in order to post dilate. GEOVANY-3 flow was present before and after the procedure. At the end the procedure the guide catheter was removed from the left main artery and placed in the right coronary followed by Choice PT active support wire. A 3.5 x 30 mm [place] frontier stent was deployed at 20 caesar in the proximal to mid dominant right coronary reducing the stenosis to 0%. GEOVANY-3 flow was present before and after the procedure. At the end the procedure the apparatus was removed the sheath was removed and hemostasis was achieved using TR banding patient was transferred to the postop putting in stable condition ANGIOGRAPHIC RESULTS The left main artery Normal The left anterior descending artery Has an ostial proximal 70% stenosis followed by patent proximal LAD stent which is widely patent with no in-stent restenosis and a 20-30% stenosis distal to the transition followed by additional mid vessel 30 to 40% stenoses The circumflex artery Nondominant and proximally normal. The first obtuse marginal artery has proximal 20 to 30% stenosis while the mid circumflex artery then has 10 to 20% stenoses. The terminal obtuse marginal artery has a proximal 30% and mid vessel 30% stenosis The right coronary artery Has ostial proximal 30% stenosis with a proximal to mid vessel hazy 70% stenosis followed by mid vessel 40 and then eccentric 40 to 50% stenosis The CASILLAS ventriculogram reveals Not performed The left ventricular end-diastolic pressure Not measured IMPRESSION Severe ostial proximal LAD disease as described above Successful stent to the ostial proximal LAD severe disease reduced to 0% with 1 drug-eluting stent Severe hazy stenosis in the proximal dominant right coronary Successful stent in the proximal to mid dominant right coronary severe disease reduced to 0% with 1 drug-eluting stent PLAN 1. Dual antiplatelet therapy 2. Cardiac rehabilitation 3. Avoidance of tobacco products 4. Risk factor modification 5. LDL less than 55 to be achieved with high intensity statin Electronically signed by : Jesus Williamson MD 08/19/2023 11:28:54
[2023-08-19 08:52] LABS: Basophils # 0.1 K/mm3 (0-0.2); Basophils % 1.2 % (0.1-2.0); Eosinophils # 0.5 K/mm3 (0.0-0.4); Eosinophils % 5.1 % (0.1-12.0); Hematocrit 45.1 % (42.0-52.0); Hemoglobin 14.8 g/dL (14.1-18.0); Lymphocytes # 2.7 K/mm3 (0.7-4.5); Mean Corpuscular HGB Conc 32.7 g/dL (31.8-35.4); Mean Corpuscular Hemoglobin 33.9 pg (27.0-31.2); Mean Corpuscular Volume 103.4 fl (80-94); Mean Platelet Volume 9.1 fl (7.4-10.4); Monocytes # 0.4 K/mm3 (0.1-1.0); Monocytes % 4.5 % (1.7-9.3); Neutrophils % 61.2 % (37.0-80.0); Platelet Count 277 K/mm3 (142-424); Red Blood Count 4.36 M/mm3 (4.60-6.20); Red Cell Distribution Width 14.4 % (11.5-17.5); White Blood Count 9.7 K/mm3 (4.8-10.8)
[2023-08-19 09:02] LABS: Anion Gap 9.7 mEq/L (5-15); Blood Urea Nitrogen 6 mg/dl (9-20); Calcium 9.3 mg/dl (8.4-10.2); Carbon Dioxide 26 mmol/L (22.0-30.0); Chloride 109 mmol/L (98-107); Creatinine Clearance Estimated 182 mL/min (50-200); Estimated Glomerular Filt Rate 127 ml/min (>60); GFR (African American) 154 ML/MIN (>60); Glucose 102 mg/dl (74-100); Potassium 3.7 mmoL/L (3.5-5.1); Sodium 141 mmol/L (136-145)
[2023-08-19] MEDS: 0.9 % SODIUM CHLORIDE 500 ML 25 ML IV (10:52)
[2023-08-19] MEDS: HEPARIN 1,000 UNITS/500ML NS (CATH LAB) 3000 UNIT IV (10:52)
[2023-08-19] MEDS: HEPARIN 1,000 UNITS/ML 10ML VIAL (CATH LAB) 10000 UNIT IV (10:52)
[2023-08-19] MEDS: LIDOCAINE 1% 10ML MDV 20 ML IJ (10:52)
[2023-08-19] MEDS: diphenhydrAMINE 50MG/ML VIAL 50 MG IV (10:53)
[2023-08-19] MEDS: VERAPAMIL 2.5MG/ML 2ML VIAL 2.5 MG IV (10:53)
[2023-08-19] MEDS: NITROGLYCERIN 800MCG/8ML SYR (CATH LAB) 800 MCG IA (10:53)
[2023-08-19] MEDS: MIDAZOLAM HCL 1MG/1ML 5ML VIAL 1 MG IV (11:08)
[2023-08-19] MEDS: FENTANYL 100MCG/2ML VIAL 50 MCG IV (11:08)
[2023-08-19] MEDS: ASPIRIN 81MG CHEWABLE TABLET 81 MG PO (11:23)
[2023-08-19] MEDS: CLOPIDOGREL 75MG TAB 75 MG PO (11:25)
[2023-08-19 14:54] LABS: CATHL Activated Clotting Time > 400 SEC (74-125)
[2023-08-19] MEDS: IOPAMIDOL-370 (76%);100ML BOTTLE 110 ML IV (14:59)
== END 2023-08-19 14:11 | disposition home or self-care (01) ==
PROVIDERS: Visit Provider Internal Medicine
DX: I10 Essential (primary) hypertension (principal); E78.2 Mixed hyperlipidemia; I25.118 Atherosclerotic heart disease of native coronary artery with other forms of angina pectoris; I25.2 Old myocardial infarction; F17.210 Nicotine dependence, cigarettes, uncomplicated; Z79.899 Other long term (current) drug therapy; I47.20 Ventricular tachycardia, unspecified; E78.5 Hyperlipidemia, unspecified
CPT/HCPCS: 80048; 85025; 85347; 92928; 93454; 99152; C1725; C1769; C1874; C1876; C9600; J1644; Q9967

== ENCOUNTER 2024-06-29 16:18 | Inpatient (IN) | payer OTHER, SELFPAY ==
--- NOTE | 2024-06-29 | IR_ITS ---
APPROVED REPORT Patient Location: [facility] Program Manager: OSBALDO Park RT (R) PROCEDURES 1. Left heart catheterization 2. Selective coronary arteriography 3. Left ventriculography 4. PTCA/stent to the left anterior descending INDICATION 1. Acute myocardial infarction, 2. Coronary artery disease SCAI INDICATION Patient is a 39-year-old white male who presented with an acute myocardial infarction. ST elevation with significant ST depression. Pressure and tightness in the chest. Secondary to this referred directly for left heart catheterization. He has known coronary artery disease Informed consent was obtained prior to the procedure. COMPLICATIONS None Estimated Blood Loss: Less than 10 mls TECHNIQUE One percent lidocaine used to anesthetize the right anterior aspect of the wrist. The right radial artery was accessed via the Seldinger technique. A 6 [place] sheath was placed in the right radial artery. 2.5 mg of Verapamil, 800 mcg of nitroglycerin, 1mg Lidocaine and 5000 U Heparin were given through the arterial sheath. The papa catheter was also used to perform left heart catheterization, left ventriculogram and selective coronary angiogram. At the end of the procedure the sheath was removed good hemostasis was achieved using Traclet band, patient was transferred to the postop holding area in stable condition. ANGIOGRAPHIC RESULTS The left main artery Ostial 20% stenosis The left anterior descending artery Had a stent in its proximal portion. The stent was free of disease. Just after the stent patient had 80 to 85% tubular stenosis. Small diagonal branch at that level. Normal flow to the apex The circumflex artery Large in size. There was a high first obtuse marginal breast/ramus with a 50% ostial stenosis. That vessel was less than 1 mm in size. Second obtuse marginal branch was large in size with smooth 20% proximal stenosis. Just after the second obtuse marginal branch patient had smooth 20 to 30% stenosis in the left circumflex. There was also an mid/distal 30% stenosis. Normal flow to the distal vessel The right coronary artery Large and dominant. There was a stent in the proximal/mid vessel which was free of disease. Normal flow to the distal vessel. Posterior descending artery had a smooth 30% smooth mid stenosis. Normal flow into the distal vessel The CASILLAS ventriculogram reveals Normal left ventricular systolic function with an ejection fraction of 55 to 60%. No wall motion abnormalities. No noted mitral insufficiency. No gradient on pullback of the catheter The left ventricular end-diastolic pressure 20 ACT was checked prior to the procedure. This was just over 250. Additional 2000 of heparin was given. I went in with a guide catheter the left main coronary artery. I had already engaged with the diagnostic catheter. Wired the left anterior descending with a Choice PT wire. Primary stenting was done in the mid vessel with a 2.75 x 22 mm Yonathan frontier drug-eluting stent. Taken up to 20 caesar for 10 seconds. Resulted in 0% residual stenosis. GEOVANY-3 flow was noted. No significant residual stenosis when the procedure was complete. There was a tiny diagonal which crossed this stenosis. That diagonal is less than 1 mm in size. Jailed by the stent but still had GEOVANY-3 flow in the diagonal branch. Normal flow to the distal left anterior descending at its apex Radial sheath removed and radial band placed without difficulty IMPRESSION 1. Severe stenosis noted in the mid left anterior descending 2. Patent stent in the proximal left anterior descending 3. Patent stent in the proximal/mid large dominant right coronary artery 4. Normal left ventricular systolic function 5. Normal left ventricular end-diastolic pressure 6. Successful angioplasty and stenting of the mid left anterior descending with an [place] frontier drug-eluting stent resulting in 0% residual stenosis 7. Successful placement of a radial band on the right radial artery PLAN 1. Patient will continue with aggressive medical therapy. He is already on Plavix 75 mg daily. 600 mg x 1 now then 75 mg daily will be continued. This was not in-stent restenosis. Ejection fraction is normal. Echocardiogram will be obtained. Follow-up in cardiology clinic 1 to 2 weeks after discharge. Aggressive risk factor modification. Aggressive titration of medications as tolerated Electronically signed by : Jonathon Gomez MD 06/29/2024 17:42:59
[2024-06-29 16:18] VITALS: BP 138/91; PULSE 57; RESP 19; TEMP 36.4; O2SAT 97; BMI 28.8
--- NOTE | 2024-06-29 16:20 | ECG_ITS ---
APPROVED REPORT Exam: Resting ECG HR:53 bpm ECG Measurements Heart Rate 53 AXES ID 163 P 64 QRSd 105 QRS 92 QT 552 T 162 QTc 535 Conclusion SINUS BRADYCARDIA BORDERLINE RIGHT AXIS DEVIATION [QRS AXIS > 90] ST DEVIATION AND MARKED T-WAVE ABNORMALITY, CONSIDER ANTEROLATERAL ISCHEMIA [-0.5+ mV T-WAVE IN I/aVL/V3-V6] PROLONGED QT INTERVAL CRITICAL TEST RESULT UNCONFIRMED REPORT Electronically signed by : ALPHONSO ROSALES, 06/30/2024 05:30:59
--- NOTE | 2024-06-29 16:24 | ED_ITS ---
Discharge Plan Disposition Patient Disposition: Admitted Condition: Critical Clinical Impressions Clinical Impression: STEMI (ST elevation myocardial infarction) Discharge ED Provider: Jorge Adams HPI <DON Wills - Last Filed: 06/29/24 19:25> General Chief Complaint: Chest Pain Stated Complaint: CP/SOA Time Seen by Provider: 06/29/24 16:19 History of Present Illness HPI narrative: Patient presents for evaluation of chest pain. Patient states that he began having left-sided substernal chest pain that began rating down his arm approximately 2 hours prior to his arrival in the emergency department. He reports that his left arm hurts so much she cannot move it. He reports that he has had shortness of breath and is nauseated but no vomiting or diarrhea thus far. He denies fever chills hemoptysis hematochezia melena hematemesis hematuria diarrhea. Related Data Previous Rx's ?Medication ?Instructions ?Recorded aspirin 81 mg tablet,delayed 81 mg PO DAILY #90 tabs 04/08/23 release (Adult Low Dose Aspirin) atorvastatin 40 mg tablet 40 mg PO DAILY #90 tabs 04/08/23 clopidogrel 75 mg tablet (Plavix) 75 mg PO QDAY #90 tabs 04/08/23 metoprolol succinate 25 mg 25 mg PO QDAY #90 tabs 04/08/23 tablet,extended release 24 hr pantoprazole 40 mg tablet,delayed 40 mg PO DAILY #90 tabs 04/15/23 release (Protonix) losartan 50 mg tablet 50 mg PO DAILY #90 tabs 08/31/23 Allergies Allergy/AdvReac Type Severity Reaction Status Date / Time No Known Allergies Allergy Verified 08/31/23 09:58 PFS <DON Wills - Last Filed: 06/29/24 19:25> [facility] Disclaimer: The information contained in this section may have been updated after the patient was seen, as this information can be updated by other users. Medical History (Updated 06/29/24 @ 17:14 by Chalo Parker RN) SOB (shortness of breath) on exertion Ventricular tachycardia Typical angina NSTEMI (non-ST elevated myocardial infarction) HLD (hyperlipidemia) HTN (hypertension) Abnormal electrocardiogram [ECG] [EKG] Coronary artery disease Tobacco abuse Type 1 myocardial infarction Acute follicular conjunctivitis of right eye Surgical History H/O skin graft Family History Mother Stroke Social History Smoking Status: Current every day smoker tobacco type: cigarettes packs per day: 1 alcohol intake: never substance use type: marijuana current occupational status: other Travel in the last 8 weeks: None caffeine: No Have you lived/traveled outside [place] in past 30 days?: No Contact w/someone who lives/traveled outside US past 30 days?: No Exposure to someone with infectious disease in past 14 days?: No Do you have a fever (greater than 100.4 F or 38 C)?: No Have you tested positive for COVID-19: No Exposed to someone with COVID-19 in past 14 days?: No Do you have a sore throat?: No Do you have a cough?: No Do you have any weakness?: No Do you have any diarrhea?: No Are you experiencing any unusual bleeding?: No Do you have any muscle aches/pain?: No Do you have any abdominal pain?: No Are you experiencing loss of taste or smell?: No Other Medical History Have you received the Flu Vaccine for this season: No Have you received the Pneumonia Vaccine: No <DON Wills - Last Filed: 06/29/24 19:25> ROS Obtained: Yes Systems reviewed as appropriate & no additional complaints except as documented Physical Exam <DON Wills - Last Filed: 06/29/24 19:25> General General appearance: alert and in no apparent distress Respiratory Respiratory exam: Present normal lung sounds bilaterally Cardiovascular Cardiovascular exam: Present regular rate Neurological Exam Neurological exam: Present alert and oriented X3 HEART Score <DON Wills - Last Filed: 06/29/24 19:25> HEART Score HEART Score assessment performed?: Yes History (anamnesis): Highly suspicious ECG: Significant ST-deviation Age: <45 years Risk factors: Atherosclerosis history Troponin: </= normal limit HEART Score: 6 <Jorge Adams MD - Last Filed: 06/29/24 19:56> HEART Score HEART Score: 6 Procedures <Jorge Adams MD - Last Filed: 06/29/24 19:56> Limited Ultrasound Indication:: Limited cardiac ultrasound Indication: Chest pain, diaphoresis Identified cardiac views: -Cardiac parasternal long axis -Cardiac parasternal short axis -Cardiac apical four-chamber Findings: -Cardiac activity present -Gross wall motion abnormal with minimal wall motion and left circumflex territory -Pericardial effusion absent -Right heart strain absent -Grossly decreased systolic function with EPSS greater than 20. Impression: -Grossly decreased systolic function with wall motion abnormality on parasternal short axis and territory of left circumflex artery Images were saved to permanent archive The study was technically adequate CPT: 69552 This study was performed by me, and I personally interpreted all images/videos. Based on my clinical judgement, these images were adequate and did not necessitate further imaging Critical Care <DON Wills - Last Filed: 06/29/24 19:25> Critical Care Time Critical Care Time: Yes Attestation: On 06/29/24, the high probability of a clinically significant, sudden or life threatening deterioration of the following system(s) required my full and direct attention, intervention and personal management. The time I documented below is in addition to time spent performing reported procedures but includes the following listed in this critical care notation. Total Time Total Critical Care Time: 45 Medical Decision Making <DON Wills - Last Filed: 06/29/24 19:25> Medical Records Medical records reviewed: Yes I reviewed the patient's medical records. Laci Inquiry Pt receiving controlled substance: No Vital Signs Vital Signs: 06/29/24 16:18 06/29/24 16:35 06/29/24 16:43 Temperature 97.6 F Temperature Source Oral Pulse Rate Pulse Rate [Left Radial] 57 L Respiratory Rate 19 Blood Pressure 147/86 H 168/85 H Blood Pressure [Right Arm] 138/91 H Blood Pressure Mean 100 107 Blood Pressure Mean [Right Arm] 106 Blood Pressure Source [Right Arm] Automatic Cuff 02 Sat by Pulse Oximetry 97 Oxygen Delivery Method Room Air 06/29/24 16:47 06/29/24 16:52 06/29/24 17:10 Temperature 98.0 F Temperature Source Pulse Rate 57 L Pulse Rate [Left Radial] Respiratory Rate 16 Blood Pressure 146/88 H 150/89 H 138/91 H Blood Pressure [Right Arm] Blood Pressure Mean 111 120 Blood Pressure Mean [Right Arm] Blood Pressure Source [Right Arm] 02 Sat by Pulse Oximetry Oxygen Delivery Method Lab Data Lab results reviewed: Yes I reviewed the patient's lab results. Labs: Lab Results 06/29/24 16:27: WBC 11.4 H, RBC 4.23 L, Hgb 14.1, Hct 40.4 L, MCV 95.5 H, MCH 33.3 H, MCHC 34.9, RDW 12.4, Plt Count 267, MPV 10.3, Neut % (Auto) 74.1, Lymph % (Auto) 15.8, [place] % (Auto) 5.5, Eos % (Auto) 3.4, Baso % (Auto) 0.9, Neut # (Auto) 8.5 H, Lymph # (Auto) 1.8, [place] # (Auto) 0.6, Eos # (Auto) 0.4, Baso # (Auto) 0.1, PT 10.4, INR 0.94, APTT 22.6, Sodium 136, Potassium 3.7, Chloride 105, Carbon Dioxide 25, Anion Gap 9.7, BUN 6 L, Creatinine 0.70, Estimated Creat Clear 174, Estimated GFR 126, Est GFR ( Amer) 153, Glucose 152 H, Calcium 9.2, Total Bilirubin 0.7, AST 34, ALT 50, Alkaline Phosphatase 118, Troponin I 0.02, NT-Pro-B Natriuret Pep 568 H, Total Protein 6.9, Albumin 4.5, Globulin 2.4, Albumin/Globulin Ratio 1.9 H, Triglycerides 118, Cholesterol 181, LDL Cholesterol Direct 115.58, VLDL Cholesterol 24, HDL Cholesterol 34 L, C holesterol/HDL Ratio 5.3 H 06/29/24 16:27 06/29/24 16:27 Response Orders (Tests/Meds): ED MEDICATIONS Generic Name Dose Route Start Last Admin Trade Name Freq PRN Reason Stop Dose Admin Fentanyl Citrate 50 mcg 06/29/24 16:45 06/29/24 17:17 Fentanyl 100mcg/2ml Vial IV 06/30/24 04:45 25 mcg Q3MINP PRN Administration Sedation Fentanyl Citrate 25 mcg 06/29/24 16:45 Fentanyl 100mcg/2ml Vial IV 06/30/24 04:45 Q3MINP PRN Sedation Flumazenil 0.2 mg 06/29/24 16:45 Flumazenil 0.1mg/Ml 5ml Vial IV 06/30/24 04:45 NEEDED PRN Sedation Heparin Sodium (Porcine) 10,000 unit 06/29/24 16:45 Heparin 1,000 Units/Ml 10ml Vial ([employer]) IV 06/29/24 20:45 NEEDED PRN Emergency Box [employer] Hydralazine HCl 20 mg 06/29/24 16:45 Hydralazine 20mg/Ml Vial IV 06/29/24 20:45 ONCE PRN sbp>160 Sodium Chloride 1,000 mls @ 25 mls/hr 06/29/24 16:30 Sod Chlor 0.9% 1000ml Bag IV 07/29/24 16:29 .Q25H PORTER Adenosine 180 mg/ Sodium 90 mls @ 465.388 mls/hr 06/29/24 16:45 Chloride IV 06/29/24 20:45 ONCE PRN fractional flow reserve 180 MCG/KG/MIN Adenosine 90 mg/ Sodium 90 mls @ 930.776 mls/hr 06/29/24 16:45 Chloride IV 06/29/24 20:45 ONCE PRN fractional flow reserve 180 MCG/KG/MIN Sodium Chloride 1,000 mls @ 25 mls/hr 06/29/24 16:45 06/29/24 17:17 Sod Chloride 0.9% 500ml Bag IV 06/30/24 16:45 25 mls/hr .Q25H PORTER Administration Heparin Sodium/Dextrose 500 mls @ 20 mls/hr 06/29/24 17:00 06/29/24 17:23 Heparin 25,000 Units In D5w 500ml Premix IV 07/29/24 16:59 20 mls/hr .Q25H PORTER Administration 1,000 UNITS/HR Iopamidol 90 ml 06/29/24 17:51 06/29/24 17:52 Iopamidol-370 (76%);100ml Bottle IV 06/29/24 17:52 90 ml ONCE ONE Administration Labetalol HCl 20 mg 06/29/24 16:45 Labetalol 20mg/4ml Syringe IV 06/29/24 20:45 ONCE PRN sbp>160 Midazolam HCl 1 mg 06/29/24 16:45 Midazolam 2mg/2ml Vial IV 06/30/24 04:45 Q3MINP PRN Sedation Midazolam HCl 1 mg 06/29/24 16:45 06/29/24 17:17 Midazolam Hcl 1mg/Ml 5ml Vial IV 06/30/24 04:45 1 mg Q3MINP PRN Administration Sedation Miscellaneous 1 each 06/29/24 16:30 Heparin Drip Consult NOTAPPLIC 06/30/24 04:26 CONSULT PHARMACY [facility] Naloxone HCl 0.4 mg 06/29/24 16:45 Naloxone 0.4mg/Ml Vial IV 06/30/24 04:45 Q5MINP PRN Decreased Respirations Nitroglycerin 800 mcg 06/29/24 16:45 06/29/24 17:16 Nitroglycerin 800mcg/8ml Syr ([employer]) IA 06/29/24 20:45 800 mcg NEEDED PRN Administration Emergency Box [employer] Protamine Sulfate 50 mg 06/29/24 16:45 Protamine Sulfate 50mg/5ml Vial ([employer]) IV 06/29/24 20:45 ONCE PRN act>200 Sodium Chloride 10 ml 06/29/24 16:24 Sodium Chloride 0.9% 10ml Flush Syringe IV 07/29/24 16:23 NEEDED PRN Maintain IV Site Discontinued Medications Generic Name Dose Route Start Last Admin Trade Name Freq PRN Reason Stop Dose Admin Diphenhydramine HCl 50 mg 06/29/24 16:45 06/29/24 17:15 Diphenhydramine 50mg/Ml Vial IV 06/29/24 16:46 50 mg ONCE ONE Administration Heparin Sodium (Porcine) 5,000 unit 06/29/24 16:24 06/29/24 16:55 Heparin 1,000 Units/Ml 10ml Vial ([employer]) IV 06/29/24 16:25 7,000 unit ONCE ONE Administration Heparin Sodium/Sodium Chloride 3,000 unit 06/29/24 16:45 06/29/24 17:17 Heparin 1,000 Units/500ml Ns ([employer]) IV 06/29/24 16:46 3,000 unit ONCE ONE Administration Lidocaine HCl 20 ml 06/29/24 16:45 06/29/24 17:16 Lidocaine 1% 10ml Mdv IJ 06/29/24 16:46 10 ml ONCE ONE Administration Lidocaine HCl 20 ml 06/29/24 16:45 Lidocaine 1% 5ml Pf Vial IJ 06/29/24 16:46 ONCE ONE Nitroglycerin 0.4 mg 06/29/24 16:24 Nitroglycerin 0.4mg Sl Tablet SL 06/29/24 18:24 Q5MINP PRN Chest Pain Ondansetron HCl 4 mg 06/29/24 16:31 06/29/24 16:33 Ondansetron 4mg/2ml Vial IV 06/29/24 16:32 4 mg ONCE ONE Administration Ticagrelor 180 mg 06/29/24 16:24 06/29/24 16:59 Ticagrelor 90mg Tablet PO 06/29/24 16:25 180 mg ONCE ONE Administration Verapamil HCl 2.5 mg 06/29/24 16:45 06/29/24 17:16 Verapamil 2.5mg/Ml 2ml Vial IV 06/29/24 16:46 2.5 mg ONCE ONE Administration ORDERS Category Date Time Status Consult to Cardiology [CONS] Stat Cons 06/29/24 16:24 Active POCUS Point of Care (ER Only) Stat Exams 06/29/24 16:50 Completed XR chest portable Stat Exams 06/29/24 16:24 Taken Activated Partial Thrombo Time Stat Lab 06/29/24 16:27 Completed Basic Metabolic Panel Stat Lab 06/29/24 16:45 Ordered Complete Blood Count Auto Diff Stat Lab 06/29/24 16:27 Completed Comprehensive Metabolic Panel Stat Lab 06/29/24 16:27 Completed HIV Combo Stat Lab 06/29/24 16:27 Received Heparin drip PTT [PTT Heparin (inpatient only)] Stat Lab 06/29/24 23:00 Ordered Hepatitis C Ab Qual. W/ RFX Stat Lab 06/29/24 16:27 Received Lipid Panel Stat Lab 06/29/24 16:27 Completed NT Pro Brain Natriuretic Pep. Stat Lab 06/29/24 16:27 Completed Prothrombin Time INR Stat Lab 06/29/24 16:27 Completed Troponin I Q3H Lab 06/29/24 19:30 Ordered Troponin I Q3H Lab 06/29/24 22:30 Ordered Troponin I Stat Lab 06/29/24 16:27 Completed MDM Narrative Medical Decision Narrative: In summary patient is a 89-year-old male who presents to the emergency department for evaluation of chest pain. Patient has undergone previous cardiac cath with LAD stenting in 2023 patient is initially normotensive at 138/91 and bradycardic at 57 breathing 19 times a minute satting at 97% on room air with a temperature of 97.6. Physical exam reveals an ill-appearing 39-year-old gentleman who is well-nourished well-developed. He has a rosario coloration and is profusely diaphoretic moderately responsive but appropriate. Sounds are clear and equal bilaterally to the bases without adventitious sounds. Abdomen soft nontender no rebound or guarding or rigidity. There is no reproducible chest pain on palpation of the chest wall.. Differential diagnosis includes ACS versus PE versus dissection etc. Initial workup will be conducted with STEMI alert which includes chest x-ray twelve-lead EKG hematologic labs activation of the [employer] as his twelve-lead EKG shows ST elevation suggestive of an anterior IN. Initial interventions include heparin bolus and heparin drip as patient received nitrates and aspirin en route. Initial workup reviewed by me shows that his white count is 11.4 hemoglobin hematocrit are stable INR is 0.94 PTT is 22.6 troponin is 0.02 NT proBNP is 568 and the remainder of his hematologic labs are nonactionable my informal interpretation of his plain film chest x-ray shows no acute processes. Dr. Adams was in direct contact with Dr. Esparza of cardiology and [employer] Supervisor has been activated. Patient has been taken to the [employer]visor for further evaluation and care. <Jorge Adams MD - Last Filed: 06/29/24 19:56> Vital Signs Vital Signs: 06/29/24 16:18 06/29/24 16:35 06/29/24 16:43 Temperature 97.6 F Temperature Source Oral Pulse Rate Pulse Rate [Left Radial] 57 L Respiratory Rate 19 Blood Pressure 147/86 H 168/85 H Blood Pressure [Right Arm] 138/91 H Blood Pressure Mean 100 107 Blood Pressure Mean [Right Arm] 106 Blood Pressure Source [Right Arm] Automatic Cuff 02 Sat by Pulse Oximetry 97 Oxygen Delivery Method Room Air 06/29/24 16:47 06/29/24 16:52 06/29/24 17:10 Temperature 98.0 F Temperature Source Pulse Rate 57 L Pulse Rate [Left Radial] Respiratory Rate 16 Blood Pressure 146/88 H 150/89 H 138/91 H Blood Pressure [Right Arm] Blood Pressure Mean 111 120 Blood Pressure Mean [Right Arm] Blood Pressure Source [Right Arm] 02 Sat by Pulse Oximetry Oxygen Delivery Method Lab Data Labs: Lab Results 06/29/24 16:27: WBC 11.4 H, RBC 4.23 L, Hgb 14.1, Hct 40.4 L, MCV 95.5 H, MCH 33.3 H, MCHC 34.9, RDW 12.4, Plt Count 267, MPV 10.3, Neut % (Auto) 74.1, Lymph % (Auto) 15.8, [place] % (Auto) 5.5, Eos % (Auto) 3.4, Baso % (Auto) 0.9, Neut # (Auto) 8.5 H, Lymph # (Auto) 1.8, [place] # (Auto) 0.6, Eos # (Auto) 0.4, Baso # (Auto) 0.1, PT 10.4, INR 0.94, APTT 22.6, Sodium 136, Potassium 3.7, Chloride 105, Carbon Dioxide 25, Anion Gap 9.7, BUN 6 L, Creatinine 0.70, Estimated Creat Clear 174, Estimated GFR 126, Est GFR ( Amer) 153, Glucose 152 H, Calcium 9.2, Total Bilirubin 0.7, AST 34, ALT 50, Alkaline Phosphatase 118, Troponin I 0.02, NT-Pro-B Natriuret Pep 568 H, Total Protein 6.9, Albumin 4.5, Globulin 2.4, Albumin/Globulin Ratio 1.9 H, Triglycerides 118, Cholesterol 181, LDL Cholesterol Direct 115.58, VLDL Cholesterol 24, HDL Cholesterol 34 L, C holesterol/HDL Ratio 5.3 H Response Orders (Tests/Meds): ED MEDICATIONS Generic Name Dose Route Start Last Admin Trade Name Freq PRN Reason Stop Dose Admin Fentanyl Citrate 50 mcg 06/29/24 16:45 06/29/24 17:17 Fentanyl 100mcg/2ml Vial IV 06/30/24 04:45 25 mcg Q3MINP PRN Administration Sedation Fentanyl Citrate 25 mcg 06/29/24 16:45 Fentanyl 100mcg/2ml Vial IV 06/30/24 04:45 Q3MINP PRN Sedation Flumazenil 0.2 mg 06/29/24 16:45 Flumazenil 0.1mg/Ml 5ml Vial IV 06/30/24 04:45 NEEDED PRN Sedation Heparin Sodium (Porcine) 10,000 unit 06/29/24 16:45 Heparin 1,000 Units/Ml 10ml Vial ([employer]) IV 06/29/24 20:45 NEEDED PRN Emergency Box [employer] Hydralazine HCl 20 mg 06/29/24 16:45 Hydralazine 20mg/Ml Vial IV 06/29/24 20:45 ONCE PRN sbp>160 Sodium Chloride 1,000 mls @ 25 mls/hr 06/29/24 16:30 Sod Chlor 0.9% 1000ml Bag IV 07/29/24 16:29 .Q25H PORTER Adenosine 180 mg/ Sodium 90 mls @ 465.388 mls/hr 06/29/24 16:45 Chloride IV 06/29/24 20:45 ONCE PRN fractional flow reserve 180 MCG/KG/MIN Adenosine 90 mg/ Sodium 90 mls @ 930.776 mls/hr 06/29/24 16:45 Chloride IV 06/29/24 20:45 ONCE PRN fractional flow reserve 180 MCG/KG/MIN Sodium Chloride 1,000 mls @ 25 mls/hr 06/29/24 16:45 06/29/24 17:17 Sod Chloride 0.9% 500ml Bag IV 06/30/24 16:45 25 mls/hr .Q25H PORTER Administration Heparin Sodium/Dextrose 500 mls @ 20 mls/hr 06/29/24 17:00 06/29/24 17:23 Heparin 25,000 Units In D5w 500ml Premix IV 07/29/24 16:59 20 mls/hr .Q25H PORTER Administration 1,000 UNITS/HR Iopamidol 90 ml 06/29/24 17:51 06/29/24 17:52 Iopamidol-370 (76%);100ml Bottle IV 06/29/24 17:52 90 ml ONCE ONE Administration Labetalol HCl 20 mg 06/29/24 16:45 Labetalol 20mg/4ml Syringe IV 06/29/24 20:45 ONCE PRN sbp>160 Midazolam HCl 1 mg 06/29/24 16:45 Midazolam 2mg/2ml Vial IV 06/30/24 04:45 Q3MINP PRN Sedation Midazolam HCl 1 mg 06/29/24 16:45 06/29/24 17:17 Midazolam Hcl 1mg/Ml 5ml Vial IV 06/30/24 04:45 1 mg Q3MINP PRN Administration Sedation Miscellaneous 1 each 06/29/24 16:30 Heparin Drip Consult NOTAPPLIC 06/30/24 04:26 CONSULT PHARMACY [facility] Naloxone HCl 0.4 mg 06/29/24 16:45 Naloxone 0.4mg/Ml Vial IV 06/30/24 04:45 Q5MINP PRN Decreased Respirations Nitroglycerin 800 mcg 06/29/24 16:45 06/29/24 17:16 Nitroglycerin 800mcg/8ml Syr ([employer]) [place] 06/29/24 20:45 800 mcg NEEDED PRN Administration Emergency Box [employer] Protamine Sulfate 50 mg 06/29/24 16:45 Protamine Sulfate 50mg/5ml Vial ([employer]) IV 06/29/24 20:45 ONCE PRN act>200 Sodium Chloride 10 ml 06/29/24 16:24 Sodium Chloride 0.9% 10ml Flush Syringe IV 07/29/24 16:23 NEEDED PRN Maintain IV Site Discontinued Medications Generic Name Dose Route Start Last Admin Trade Name Freq PRN Reason Stop Dose Admin Diphenhydramine HCl 50 mg 06/29/24 16:45 06/29/24 17:15 Diphenhydramine 50mg/Ml Vial IV 06/29/24 16:46 50 mg ONCE ONE Administration Heparin Sodium (Porcine) 5,000 unit 06/29/24 16:24 06/29/24 16:55 Heparin 1,000 Units/Ml 10ml Vial ([employer]) IV 06/29/24 16:25 7,000 unit ONCE ONE Administration Heparin Sodium/Sodium Chloride 3,000 unit 06/29/24 16:45 06/29/24 17:17 Heparin 1,000 Units/500ml Ns ([employer]) IV 06/29/24 16:46 3,000 unit ONCE ONE Administration Lidocaine HCl 20 ml 06/29/24 16:45 06/29/24 17:16 Lidocaine 1% 10ml Mdv IJ 06/29/24 16:46 10 ml ONCE ONE Administration Lidocaine HCl 20 ml 06/29/24 16:45 Lidocaine 1% 5ml Pf Vial IJ 06/29/24 16:46 ONCE ONE Nitroglycerin 0.4 mg 06/29/24 16:24 Nitroglycerin 0.4mg Sl Tablet SL 06/29/24 18:24 Q5MINP PRN Chest Pain Ondansetron HCl 4 mg 06/29/24 16:31 06/29/24 16:33 Ondansetron 4mg/2ml Vial IV 06/29/24 16:32 4 mg ONCE ONE Administration Ticagrelor 180 mg 06/29/24 16:24 06/29/24 16:59 Ticagrelor 90mg Tablet PO 06/29/24 16:25 180 mg ONCE ONE Administration Verapamil HCl 2.5 mg 06/29/24 16:45 06/29/24 17:16 Verapamil 2.5mg/Ml 2ml Vial IV 06/29/24 16:46 2.5 mg ONCE ONE Administration ORDERS Category Date Time Status Consult to Cardiology [CONS] Stat Cons 06/29/24 16:24 Active POCUS Point of Care (ER Only) Stat Exams 06/29/24 16:50 Completed XR chest portable Stat Exams 06/29/24 16:24 Taken Activated Partial Thrombo Time Stat Lab 06/29/24 16:27 Completed Basic Metabolic Panel Stat Lab 06/29/24 16:45 Ordered Complete Blood Count Auto Diff Stat Lab 06/29/24 16:27 Completed Comprehensive Metabolic Panel Stat Lab 06/29/24 16:27 Completed HIV Combo Stat Lab 06/29/24 16:27 Received Heparin drip PTT [PTT Heparin (inpatient only)] Stat Lab 06/29/24 23:00 Ordered Hepatitis C Ab Qual. W/ RFX Stat Lab 06/29/24 16:27 Received Lipid Panel Stat Lab 06/29/24 16:27 Completed NT Pro Brain Natriuretic Pep. Stat Lab 06/29/24 16:27 Completed Prothrombin Time INR Stat Lab 06/29/24 16:27 Completed Troponin I Q3H Lab 06/29/24 19:30 Ordered Troponin I Q3H Lab 06/29/24 22:30 Ordered Troponin I Stat Lab 06/29/24 16:27 Completed ECG Data Tracing #1: Attestation: I reviewed this ECG and interpreted as documented below: (Sinus bradycardia with what appears to be right axis deviation. He has borderline ST elevations in V3 through V5 with deep inverted symmetric T waves consistent with acute ischemia. T wave versions in lateral leads as well. Poor R wave progression.) MDM Narrative Medical Decision Narrative: In summary patient is a 89-year-old male who presents to the emergency department for evaluation of chest pain. Patient has undergone previous cardiac cath with LAD stenting in 2023 patient is initially normotensive at 138/91 and bradycardic at 57 breathing 19 times a minute satting at 97% on room air with a temperature of 97.6. Physical exam reveals an ill-appearing 39-year-old gentleman who is well-nourished well-developed. He has a rosario coloration and is profusely diaphoretic moderately responsive but appropriate. Sounds are clear and equal bilaterally to the bases without adventitious sounds. Abdomen soft nontender no rebound or guarding or rigidity. There is no reproducible chest pain on palpation of the chest wall.. Differential diagnosis includes ACS versus PE versus dissection etc. Initial workup will be conducted with STEMI alert which includes chest x-ray twelve-lead EKG hematologic labs activation of the [employer] as his twelve-lead EKG shows ST elevation suggestive of an anterior IN. Initial interventions include heparin bolus and heparin drip as patient received nitrates and aspirin en route. Initial workup reviewed by me shows that his white count is 11.4 hemoglobin hematocrit are stable INR is 0.94 PTT is 22.6 troponin is 0.02 NT proBNP is 568 and the remainder of his hematologic labs are nonactionable my informal interpretation of his plain film chest x-ray shows no acute processes. Dr. Adams was in direct contact with Dr. Esparza of cardiology and [employer]visor has been activated. Patient has been taken to the [employer] for further evaluation and care. Bryan: I independently evaluated, interviewed, examined patient. Ill- appearing, diaphoretic, weak. He is alert and oriented. Independent interpretation of EKG consistent with acute ischemia. [employer] Supervisor was activated. Patient received heparin bolus and drip, aspirin and Brilinta 180 mg. Because patient high risk for clinical decompensation, deemed appropriate for inpatient admission. Results were relayed to patient who voiced understanding and patient was agreeable to inpatient admission and management. Patient was admitted to the hospital for further definitive management.
--- NOTE | 2024-06-29 16:24 | XR_ITS ---
PROCEDURE INFORMATION: Exam: XR Chest Exam date and time: 06/29/2024 4:32 PM Age: 39 years old Clinical indication: Cardiovascular condition or disease; Other: Stemi TECHNIQUE: Imaging protocol: Radiologic exam of the chest. Views: 1 view. COMPARISON: CT ANGIO CHEST 08/05/2023 6:36 PM FINDINGS: Tubes, catheters and devices: There are EKG pads obscuring parenchymal detail. Lungs: Lungs are grossly clear. Pleural spaces: Unremarkable. No pleural effusion. No pneumothorax. Heart/Mediastinum: Unremarkable. No cardiomegaly. Bones/joints: Unremarkable. IMPRESSION: No gross acute process identified.
--- NOTE | 2024-06-29 16:26 | PC.NURSE ---
left heart catheterization consent signed. pt verbalized consent and asked to have nursing staff sign. Myself and Bindu Camp RN signed. [facility] RN present for verbalization.
[2024-06-29 16:31] VITALS: BMI 28.8
[2024-06-29] MEDS: ONDANSETRON 4MG/2ML VIAL 4 MG IV (16:33)
[2024-06-29 16:34] LABS: Basophils # 0.1 K/mm3 (0-0.2); Basophils % 0.9 % (0.1-2.0); Eosinophils # 0.4 K/mm3 (0.0-0.4); Eosinophils % 3.4 % (0.1-12.0); Hematocrit 40.4 % (42.0-52.0); Hemoglobin 14.1 g/dL (14.1-18.0); Lymphocytes # 1.8 K/mm3 (0.7-4.5); Lymphocytes % 15.8 % (10-50); Mean Corpuscular HGB Conc 34.9 g/dL (31.8-35.4); Mean Corpuscular Hemoglobin 33.3 pg (27.0-31.2); Mean Corpuscular Volume 95.5 fl (80-94); Mean Platelet Volume 10.3 fl (7.4-10.4); Monocytes # 0.6 K/mm3 (0.1-1.0); Monocytes % 5.5 % (1.7-9.3); Neutrophils # 8.5 K/mm3 (1.8-7.8); Neutrophils % 74.1 % (37.0-80.0); Platelet Count 267 K/mm3 (142-424); Red Blood Count 4.23 M/mm3 (4.60-6.20); Red Cell Distribution Width 12.4 % (11.5-17.5); White Blood Count 11.4 K/mm3 (4.8-10.8)
[2024-06-29 16:35] VITALS: BP 147/86
--- NOTE | 2024-06-29 16:37 | PC.NURSE ---
pt sugar is 151 stated by timmy
[2024-06-29 16:40] LABS: Albumin Level 4.5 g/dl (3.5-5.0); Chloride 105 mmol/L (98-107)
[2024-06-29 16:41] LABS: Potassium 3.7 mmoL/L (3.5-5.1); Sodium 136 mmol/L (136-145)
[2024-06-29 16:43] VITALS: BP 168/85
[2024-06-29 16:43] LABS: Alanine Aminotransferase 50 U/L (12-78); Albumin/Globulin Ratio 1.9 (1.1-1.8); Alkaline Phosphatase 118 U/L (38-126); Anion Gap 9.7 mEq/L (5-15); Aspartate Amino Transferase 34 U/L (17-59); Bilirubin,Total 0.7 mg/dl (0.2-1.3); Blood Urea Nitrogen 6 mg/dl (9-20); Carbon Dioxide 25 mmol/L (22.0-30.0); Cholesterol 181 mg/dl (140-200); Creatinine Clearance Estimated 174 mL/min (50-200); Estimated Glomerular Filt Rate 126 ml/min (>60); GFR (African American) 153 ML/MIN (>60); Globulin 2.4 g/dL (1.3-3.2); Total Protein,Serum 6.9 g/dl (6.3-8.2); Triglycerides 118 mg/dl (30-150); VLDL Cholesterol 24 mg/dL (0-40)
--- NOTE | 2024-06-29 16:43 | PC.NURSE ---
stemi alert called at 16:21
[2024-06-29 16:44] LABS: Calcium 9.2 mg/dl (8.4-10.2); Chol/HDL Ratio 5.3 (1-3.5); Glucose 152 mg/dl (74-100); HDL Cholesterol 34 mg/dl (40-60)
[2024-06-29 16:47] VITALS: BP 146/88
[2024-06-29 16:52] VITALS: BP 150/89
[2024-06-29 16:52] LABS: NT Pro Brain Natriuretic Pep. 568 pg/mL (0-125)
[2024-06-29 16:54] LABS: Troponin I 0.02 ng/ml (0.00-0.034)
--- NOTE | 2024-06-29 16:54 | PC.NURSE ---
I called and spoke with Maddy GREER. She is going to dose he heparin drip.
[2024-06-29 16:55] LABS: Direct LDL Cholesterol 115.58 mg/dL (100-129)
[2024-06-29] MEDS: HEPARIN 1,000 UNITS/ML 10ML VIAL (CATH LAB) 5000 UNIT IV (16:55)
--- NOTE | 2024-06-29 16:55 | PC.NURSE ---
pt presents to ED with [facility]. EKG performed, suspected STEMI. EKG shown to provider, Bryan, stated that it was in facet STEMI. @ bedside - octaviano fernando, liz holman, liz appiah, denise gonzalez, tim salinas, brent mock, ashley hull, hammad mabry. stemi alert called overhead. zoll pads placed on pt, bilateral wrist and groins shaved. multiple IV insertions attempted. 20 L forearm, 20 R forearm USG placed. meds given, SEE MAR. pt transported to labor specialist with brent mock and tim salinas.
[2024-06-29] MEDS: TICAGRELOR 90MG TABLET 180 MG PO (16:59)
[2024-06-29 17:00] LABS: Activated Partial Thrombo Time 22.6 seconds (22.5-28.5); INR 0.94 (0.9-1.1); Prothrombin Time 10.4 seconds (9.2-12.1)
--- NOTE | 2024-06-29 17:01 | PC.NURSE ---
pt left to go to laborer heading
[2024-06-29 17:10] VITALS: BP 138/91; PULSE 57; RESP 16; TEMP 36.7
[2024-06-29] MEDS: diphenhydrAMINE 50MG/ML VIAL 50 MG IV (17:15)
[2024-06-29] MEDS: LIDOCAINE 1% 10ML MDV 20 ML IJ (17:16)
[2024-06-29] MEDS: VERAPAMIL 2.5MG/ML 2ML VIAL 2.5 MG IV (17:16)
[2024-06-29] MEDS: NITROGLYCERIN 800MCG/8ML SYR (CATH LAB) 800 MCG IA (17:16)
[2024-06-29] MEDS: MIDAZOLAM HCL 1MG/ML 5ML VIAL 1 MG IV (17:17)
[2024-06-29] MEDS: FENTANYL 100MCG/2ML VIAL 50 MCG IV (17:17)
[2024-06-29] MEDS: HEPARIN 1,000 UNITS/500ML NS (CATH LAB) 3000 UNIT IV (17:17)
[2024-06-29] MEDS: 0.9 % SODIUM CHLORIDE 500 ML 25 ML IV (17:17)
[2024-06-29] MEDS: HEPARIN SODIUM,PORCINE/D5W 500 ML 20 UNIT IV (17:23)
--- NOTE | 2024-06-29 17:24 | PC.NURSE ---
HS aware of admission
--- NOTE | 2024-06-29 17:46 | SUR.PHASEII ---
pt procedure completed and admitted to ICU. Report given to Linette Tolliver RN. Dr. Gomez to talk to family. Pt reports taking his Plavix this date. Pt given 180 mg Brilinta in ED.
[2024-06-29] MEDS: IOPAMIDOL-370 (76%);100ML BOTTLE 90 ML IV (17:52)
--- NOTE | 2024-06-29 17:55 | PC.NURSE ---
1755 pt arrived to the ICU from [facility]. on assessment pt is alert to name and moving all extremities, rosario appearing in color and diaphoretic on torso and forehead. pt initial HR 108bmp sinus rhythm per night monitor, RR 11 and O2 of 92% on 2L NC. unable to obtain BP with automatic cuff at this time. URBANO Ramos attempting manual BP. Increasing O2 rate to 5L at this time due to poor appearing profusion status. 175 While attempting to obtain manual BP pt abruptly became cyanotic appearing with agonal breathing and stopped purposeful movement with no response to painful stimuli. On palpitation of carotid no pulse present. CPR immediately initiated by this nurse and RAQUEL Sloan. Richard called Code Blue over head. pt logged rolled and placed on CPR board. after approx 2 minutes of CPR pt color improved and pt began to spontaneously breathe with movement of extremities. pulse of 78 assessed on the monitor and present on carotid palpation. 175 respiratory, manager warehouse, lab, MD, radiology and nursing staff all to bedside. please see code flow sheet for further event info.
--- NOTE | 2024-06-29 19:02 | P.EN_ITS ---
After patient was admitted, and after catheterization, I responded to CODE BLUE at 1802. Patient with thready pulses, spontaneously breathing. Blood pressure with systolic in the 120s. Patient was bradycardic in the 30s to 40s. Patient was given 0.1 mg IV epi. GCS 3, I intubated patient with 7.5 tube 25 cm to the teeth. This was confirmed with end-tidal CO2, bilateral breath sounds, and pulse-wave oxygen. Patient then received numerous rounds of ACLS over the period of an hour. Patient intermittently and pulseless V. tach, V-fib, fine V- fib, ROSC was achieved x 2, but shortly thereafter was lost due to a bradycardic arrest. Bradycardia refractory to atropine. Defibrillated multiple times for all shockable rhythms. Patient then received 300 of amiodarone, 150 of amiod arone. No return of ROSC. Patient did continue having shockable rhythms, so 1 Mg per KG of lidocaine was administered. Patient also received calcium and fluids. Dual sequential defibrillation was also attempted x 4, patient did achieve ROSC briefly, epinephrine drip was started, returned into pulseless V. tach. Compressions continued. Family was at bedside, wanted to wait until other family returned from [place] in order to make final decision on discontinuation of care. It was explained that patient does not currently have cardiac activity and would be futile. Prior to discontinuing and time of pronouncement, I needed to return to the emergency department. Care was handed off to primary managing physician, Dr. Casas. Critical Care: On 06/29, the high probability of a clinically significant, sudden or life threatening deterioration of the following system(s) required my full and direct attention, intervention and personal management. The time I documented below is in addition to time spent performing reported procedures but includes the following listed in this critical care notation. 75 minutes on cardiac critical care, acute respiratory failure necessitating intubation Procedure: Intubation: Due to emergent circumstances, Mallampati not performed, but grossly appears to be 3-4. Patient has very few teeth largely edentulous. ASA 3 due to substantial and meaningful cardiac history. Patient was intubated using video laryngoscopy Madhavi blade #3 with 7.5 ET tube. Intubated under direct visual guidance and cuff was inflated 25 cm at the teeth. Confirmed with end-tidal, bilateral breath sounds and pulse oximetry waveform.
--- NOTE | 2024-06-29 19:19 | PC.NURSE ---
1755 pt arrived to the floor via stretcher from label printing machinist 180 code blue called overhead 1805 1mg epi administered 1806 narcan administered 1808 start cpr, no pulse, start bagging patient 1808 fsbs obtained 140 1809 1mg epi administered 1811 pulse check- PEA 1812 1mg epi administered 1813 ET placed 7.5 noted 25 at the teeth, positive color change noted 1815 narcan administered, 1 mg epi 1816 pulse check v fib shock patient 1817 150 amio administered 1818 1mg epi administered 1818 pulse check, v fib noted, shock patient 181 bicarb given 1820 pulse check, v fib noted, shock patient 1820 bolus of ns started 182 lucía noted 1821 1mg epi administered 182 1mg atropine given 182 bp 101/79 heart rate 46 1824 cpr started again, no pulse 1824 1mg epi administered 1824 lidocaine administered 1826 pulse check, shock pt, v fib noted 1827 1mg epi administered 1828 pulse check, v fib noted, shock pt 1830 epi 1mg noted 1830 pulse check, v fib noted 1832 pulse check, PEA noted 1833 1mg epi administered 1834 pulse check, v fib noted, shock pt 1836 pulse check noted 1836 1mg epi noted, wide complex noted 1837 300 amio given 1838 pulse check 1839 1mg epi administered 1840 epi drip started at 15 1840 cpr started again 1842 pulse check, 1mg epi given, calcium given, v tach noted on monitor, shock pt 1844 pulse check, v tach noted, shock patient 1845 1mg epi administered 1846 pulse check, v fib noted, shock pt 1848 pulse check, PEA 1848 1mg epi given 1850 pulse check, dual synchronization 1851 1mg epi given 1852 pulse check, v fib, dual synchronization 1854 pulse check 1854 1mg epi given 1854 bicarb given 1856 pulse check , PEA 1857 1mg epi given 1858 pulse check, PEA 1900 pulse check, v fib, shock pt 1902 pulse check, v fib, shock pt 1903 1mg epi administered 1904 pulse check, v fib, shock pt 1906 pulse check, 1 mg epi given, pea noted on monitor 1908 pulse check, v fib, shock pt 1909 1mg epi administered 1910 pulse check, PEA 1912 pulse check, PEA 1912 1mg epi given 1914 pulse check, PEA 1915 time of called by Dr Casas 1950 sr. logistics analyst paged
--- NOTE | 2024-06-29 19:34 | P.DN_ITS ---
Pronouncement Note Date and Time of Date of : 06/29/24 Time of : 19:15 PCOD Preliminary cause of : Cardiac arrest Contributing Factors (1) STEMI (ST elevation myocardial infarction): (2) HLD (hyperlipidemia): (3) HTN (hypertension): (4) Tobacco abuse: (5) Coronary artery disease: Summary Additional details: Patient presented to the ER with concern for STEMI. Had ST changes on EKG. Was taken to the Coating Machine Helper urgently for intervention. Had LAD lesion that was intervened on. Previous stent in LAD present. Tolerated procedure well without complication. Patient arrived to the ICU and shortly after arrival proceeded to become unresponsive, bradycardic, apneic. Code was initiated. Patient briefly had return of pulse. See code documentation for full details. Resuscitation performed per ACLS for over 70 minutes. Patient was intubated with respiratory therapy using BVM to ventilate/oxygenate patient. He received chest compressions, epinephrine, electric shock, amiodarone, lidocaine, bicarb, and fluids along with bicarb and calcium per ACLS protocol. Had multiple episodes of V. tach amenable to shock and PEA during pulse checks that were not amenable to shock. Patient had 1 additional brief episode of ROSC during which time epinephrine drip was initiated but pulse was lost again. Family at bedside intermittently through resuscitative measures. Despite aggressive resuscitative measures, patient did not survive. Unable to achieve return of spontaneous circulation. After 70 minutes of resuscitative efforts patient continued to have no palpable pulse or pulse identified via Doppler on his carotid. He was unresponsive and had PEA with a rate in the 40s. Was not initiating breaths. Due to exhaustive measures with no improvement, decision made to call time of at 1915. Resuscitative measures were stopped and family was allowed to be with patient at bedside. Unclear the exact etiology of his arrest. Concern for differential including PE, dissection, cardiac arrest due to AL, among other potential etiologies. Additional Data Confirmation of : no pulse, no respirations, no heart sounds and pupils fixed and dilated Family: at bedside Attending/PCP notified?: Yes Attending physician: Herman Casas MD Was code activated?: Yes Autopsy should be considered if:: Unknown or unanticipated medical complications Cause is not known with certainty on clinical grounds Would allay concerns of the public/family regarding Unexplained/unexpected apparently natural and not subject to a forensic medical jurisdiction DOA Within 24 hours of admission Sustained or apparently sustained injury while in the hospital Result of high risk, infectious and contagious disease Obstetric and pediatric arising from environmental or occupational hazard Unexplained/unexpected from dental, medical, or surgical diagnostic procedures and/or therapies Would disclose a known or suspected illness which also may have a bearing on survivors or recipients of transplanted organs Autopsy requested?: No Refused by family hide examiner notified?: Yes Organ bank notified?: Yes Advance directives: No
--- NOTE | 2024-06-29 19:34 | EXP.HPDC ---
General Admission date:: 06/29/24 Discharge date: 06/29/24 *Admission Date: 06/29/24 *Chief complaint: Chest pain *History of present illness: 39-year-old male with previous history of CAD status post stenting in the LAD. Presented with chest pain. On arrival found to have STEMI. Taken urgently to the Armature Winder Repairer for evaluation. Cardiology consulted. Stable on room air and interactive on time of arrival. I was unable to evaluate him until he arrived in the ICU after left heart cath. I was called to bedside due to CODE BLUE. Shortly after arrival to the ICU, patient became unresponsive and lost a pulse. ACLS/code was initiated. Patient was coded for over an hour with family including fianc? and mother communicated with regularly. Family allowed to come to bedside during CPR and observe efforts to resuscitate patient. Reportedly patient had been having some chest discomfort similar to his previous heart attacks. They also report he had been on antibiotics for an oral abscess over the past 2 months. States he does not drink or do drugs at this time however history from chart review shows previous drug use history. Patient was afebrile and on room air when he came in and alert and oriented x 3 when he presented to the ER. Unresponsive by the time of my evaluation and assessment. [facility] Disclaimer: The information contained in this section may have been updated after the patient was seen, as this information can be updated by other users. Medical History SOB (shortness of breath) on exertion Ventricular tachycardia Typical angina NSTEMI (non-ST elevated myocardial infarction) HLD (hyperlipidemia) HTN (hypertension) Abnormal electrocardiogram [ECG] [EKG] Coronary artery disease Tobacco abuse Type 1 myocardial infarction Acute follicular conjunctivitis of right eye Surgical History H/O skin graft Family History Stroke Mother Social History Smoking Status: Current every day smoker tobacco type: cigarettes packs per day: 1 alcohol intake: never substance use type: marijuana current occupational status: other Travel in the last 8 weeks: None caffeine: No Have you lived/traveled outside [place] in past 30 days?: No Contact w/someone who lives/traveled outside US past 30 days?: No Exposure to someone with infectious disease in past 14 days?: No Do you have a fever (greater than 100.4 F or 38 C)?: No Have you tested positive for COVID-19: No Exposed to someone with COVID-19 in past 14 days?: No Do you have a sore throat?: No Do you have a cough?: No Do you have any weakness?: No Do you have any diarrhea?: No Are you experiencing any unusual bleeding?: No Do you have any muscle aches/pain?: No Do you have any abdominal pain?: No Are you experiencing loss of taste or smell?: No Other Medical History Have you received the Flu Vaccine for this season: No Have you received the Pneumonia Vaccine: No Review of Systems Review of Systems Review of systems:: unable to obtain (By the time of my evaluation of patient, he had become obtunded and unresponsive.) Exam Data for Last 24 hours Vital signs and Labs for Last 24 Hours: Temp Pulse Resp BP Pulse Ox O2 Del Method 98.0 F 57 L 16 138/91 H 97 Room Air 06/29/24 17:10 06/29/24 17:10 06/29/24 17:10 06/29/24 17:10 06/29/24 16:18 06/29/24 16:18 Laboratory Results - last 24 hr 06/29/24 16:27: WBC 11.4 H, RBC 4.23 L, Hgb 14.1, Hct 40.4 L, MCV 95.5 H, MCH 33.3 H, MCHC 34.9, RDW 12.4, Plt Count 267, MPV 10.3, Neut % (Auto) 74.1, Lymph % (Auto) 15.8, [place] % (Auto) 5.5, Eos % (Auto) 3.4, Baso % (Auto) 0.9, Neut # (Auto) 8.5 H, Lymph # (Auto) 1.8, [place] # (Auto) 0.6, Eos # (Auto) 0.4, Baso # (Auto) 0.1, PT 10.4, INR 0.94, APTT 22.6, Sodium 136, Potassium 3.7, Chloride 105, Carbon Dioxide 25, Anion Gap 9.7, BUN 6 L, Creatinine 0.70, Estimated Creat Clear 174, Estimated GFR 126, Est GFR ( Amer) 153, Glucose 152 H, Calcium 9.2, Total Bilirubin 0.7, AST 34, ALT 50, Alkaline Phosphatase 118, Troponin I 0.02, NT-Pro-B Natriuret Pep 568 H, Total Protein 6.9, Albumin 4.5, Globulin 2.4, Albumin/Globulin Ratio 1.9 H, Triglycerides 118, Cholesterol 181, LDL Cholesterol Direct 115.58, VLDL Cholesterol 24, HDL Cholesterol 34 L, Cholesterol/HDL Ratio 5.3 H I & O for Last 24 hours: Intake & Output 06/26/24 06/27/24 06/28/24 06/29/24 23:59 23:59 23:59 23:59 Weight 86.183 kg Constitutional Constitutional: severe distress, chronically ill appearing and obtunded *Routine HEENT Exam Head: Present normocephalic Eye: Present PERRL ENT: Present mucous membranes moist *Routine Respiratory Exam Respiratory: Present respiratory distress; Absent rhonchi or crackles Comments: Not initiating spontaneous breathing, In respiratory distress *Routine Cardiovascular Exam Cardiovascular: Present bradycardia *Routine Abdominal Exam Abdominal: Present soft *Routine Rectal Exam Rectal:: deferred *Routine Genitalia Exam Genitalia:: normal male *Routine Extremities Exam Extremities: Absent cyanosis Comments: Numerous scabs and lesions on lower extremities *Routine Skin Exam Skin: Present intact and scars *Routine Neurological Exam Neurological: Present altered mental status; Absent alert, oriented X3 or moving all extremities Meds Home Medications and Allergies Home Medications ?Medication ?Instructions ?Recorded ?Confirmed ?Type aspirin 81 mg tablet,delayed 81 mg PO DAILY #90 tabs 04/08/23 08/31/23 Rx release (Adult Low Dose Aspirin) atorvastatin 40 mg tablet 40 mg PO DAILY #90 tabs 04/08/23 08/31/23 Rx clopidogrel 75 mg tablet (Plavix) 75 mg PO QDAY #90 tabs 04/08/23 08/31/23 Rx metoprolol succinate 25 mg 25 mg PO QDAY #90 tabs 04/08/23 08/31/23 Rx tablet,extended release 24 hr pantoprazole 40 mg tablet,delayed 40 mg PO DAILY #90 tabs 04/15/23 08/31/23 Rx release (Protonix) losartan 50 mg tablet 50 mg PO DAILY #90 tabs 08/31/23 08/31/23 Rx New Prescriptions to Start Prescriptions: Allergies Allergy/AdvReac Type Severity Reaction Status Date / Time No Known Allergies Allergy Verified 08/31/23 09:58 Hospital Course Hospital Course Hospital Course: Patient presented to the ER with concern for STEMI. Had ST changes on EKG. Was taken to the Armature Winder Repairer urgently for intervention. Had LAD lesion that was intervened on. Previous stent in LAD present. Tolerated procedure well without complication. Patient arrived to the ICU and shortly after arrival proceeded to become unresponsive, bradycardic, apneic. Code was initiated. Patient briefly had return of pulse. See code documentation for full details. Resuscitation performed per ACLS for over 70 minutes. Patient was intubated with respiratory therapy using BVM to ventilate/oxygenate patient. He received chest compressions, epinephrine, electric shock, amiodarone, lidocaine, bicarb, and fluids along with bicarb and calcium per ACLS protocol. Had multiple episodes of V. tach amenable to shock and PEA during pulse checks that were not amenable to shock. Patient had 1 additional brief episode of ROSC during which time epinephrine drip was initiated but pulse was lost again. Family at bedside intermittently through resuscitative measures. Despite aggressive resuscitative measures, patient did not survive. Unable to achieve return of spontaneous circulation. After 70 minutes of resuscitative efforts patient continued to have no palpable pulse or pulse identified via Doppler on his carotid. He was unresponsive and had PEA with a rate in the 40s. Was not initiating breaths. Due to exhaustive measures with no improvement, decision made to call time of at 1915. Resuscitative measures were stopped and family was allowed to be with patient at bedside. Unclear the exact etiology of his arrest. Concern for differential including PE, dissection, cardiac arrest due to [place], among other potential etiologies. ICU/Critical care attestation This patient is critically ill with 76 minutes devoted solely to this patient managing life/organ supporting interventions that required physician assessment. This includes time spent parforming and directing ACLS, IV fluid administration, titration of pressors, adjustments of medications, discussion of patient with consultants and other care providers as well as updating patient and/or family (if patient by virtue of his/her condition is unable to participate in decision making). This does not include time spent performing separately billed procedures. Time is not concurrent with that of other providers. Results Data Completed and Pending Labs on day of discharge: Labs from last 24 hours 06/29/24 16:27 WBC 11.4 H RBC 4.23 L Hgb 14.1 Hct 40.4 L MCV 95.5 H MCH 33.3 H MCHC 34.9 RDW 12.4 Plt Count 267 MPV 10.3 Neut % (Auto) 74.1 Lymph % (Auto) 15.8 [place] % (Auto) 5.5 Eos % (Auto) 3.4 Baso % (Auto) 0.9 Neut # (Auto) 8.5 H Lymph # (Auto) 1.8 [place] # (Auto) 0.6 Eos # (Auto) 0.4 Baso # (Auto) 0.1 PT 10.4 INR 0.94 APTT 22.6 Sodium 136 Potassium 3.7 Chloride 105 Carbon Dioxide 25 Anion Gap 9.7 BUN 6 L Creatinine 0.70 Estimated Creat Clear 174 Estimated GFR 126 Est GFR ( Amer) 153 Glucose 152 H Calcium 9.2 Total Bilirubin 0.7 AST 34 ALT 50 Alkaline Phosphatase 118 Troponin I 0.02 NT-Pro-B Natriuret Pep 568 H Total Protein 6.9 Albumin 4.5 Globulin 2.4 Albumin/Globulin Ratio 1.9 H Triglycerides 118 Cholesterol 181 LDL Cholesterol Direct 115.58 VLDL Cholesterol 24 HDL Cholesterol 34 L Cholesterol/HDL Ratio 5.3 H DS: Diagnosis Discharge Diagnosis (1) STEMI (ST elevation myocardial infarction): Status: Acute Code(s): I21.3 - ST elevation (STEMI) myocardial infarction of unspecified site (2) Cardiac arrest: Status: Acute Code(s): I46.9 - Cardiac arrest, cause unspecified (3) HTN (hypertension): Status: Acute Code(s): I10 - Essential (primary) hypertension Qualifiers: Hypertension type: primary hypertension Qualified Code(s): I10 - Essential (primary) hypertension (4) HLD (hyperlipidemia): Status: Acute Code(s): E78.5 - Hyperlipidemia, unspecified Qualifiers: Hyperlipidemia type: mixed hyperlipidemia Qualified Code(s): E78.2 - Mixed hyperlipidemia (5) Tobacco abuse: Status: Acute Code(s): Z72.0 - Tobacco use (6) Coronary artery disease: Status: Acute Code(s): I25.10 - Atherosclerotic heart disease of [place] coronary artery without angina pectoris Qualifiers: Associated angina: without angina Coronary Disease-Associated Artery/Lesion type: [place] artery [place] vs. transplanted heart: [place] heart Qualified Code(s): I25.10 - Atherosclerotic heart disease of [place] coronary artery without angina pectoris Discharge Plan Disposition Patient Disposition: Condition: Critical Patient Discharge Instructions Print Language: Guyanese Date/Time Date/Time: 06/29/24 19:15 Providers Primary Care Provider: Provider,Referral Admit Provider: Herman Casas Attending Provider: Herman Casas
[2024-06-29 20:09] LABS: HIV Combo NEGATIVE (Negative)
[2024-06-29 20:16] LABS: Hepatitis C Ab Qual. W/ RFX NEGATIVE (Negative)
--- NOTE | 2024-06-29 20:18 | PC.NURSE ---
[facility] was called. Spoke w/ Dhaval Alvarado. They will be following, he stated hed call back within the hour. As of now they are following, .
[2024-06-29 20:28] LABS: Lactate Venous 6.7 mmol/L (0.4-2.0); VBG HCO3 14.3 mmol/L (23-30); VBG PCO2 38.6 mmol/L (35-51); VBG PH 7.19 mmol/L (7.31-7.41); VBG PO2 26.4 mmol/L (28-40); VBG Total CO2 15.5 mmol/L (23-27)
--- NOTE | 2024-06-29 22:17 | PC.NURSE ---
[facility] called back around 2114, they will not be following. home notified that they can come get pt.
--- NOTE | 2024-06-29 22:36 | PC.NURSE ---
patient discharged off floor via [facility] @22:36
[2024-06-30 09:37] LABS: CATHL Activated Clotting Time 274 SEC (74-125)
[2024-06-30 09:38] LABS: CATHL Activated Clotting Time 259 SEC (74-125)
== END 2024-06-29 22:36 | disposition expired | DRG 322 ==
LOC: ER 16:26 → SDC 17:00 → ICU 22:42
PROVIDERS: Internal Medicine Cardiovascular Disease; Physician Assistant; Admitting Provider Internal Medicine Adolescent Medicine; Emergency Provider Emergency Medicine; Visit Provider Internal Medicine Adolescent Medicine
PROC: 027034Z Dilation of Coronary Artery, One Artery with Drug-eluting Intraluminal Device, Percutaneous Approach (ICD-10-PCS; principal; 2024-06-29 16:40)
DX: I21.3 ST elevation (STEMI) myocardial infarction of unspecified site (principal); I46.9 Cardiac arrest, cause unspecified; I10 Essential (primary) hypertension; E78.5 Hyperlipidemia, unspecified; I25.2 Old myocardial infarction; I25.10 Atherosclerotic heart disease of native coronary artery without angina pectoris; F17.210 Nicotine dependence, cigarettes, uncomplicated; Z79.899 Other long term (current) drug therapy; Z95.5 Presence of coronary angioplasty implant and graft; Z79.82 Long term (current) use of aspirin; Z79.01 Long term (current) use of anticoagulants; F19.91 Other psychoactive substance use, unspecified, in remission
CPT/HCPCS: 71045; 80053; 80061; 82803; 83880; 84484; 85025; 85347; 85610; 85730; 86803; 87389; 92941; 93005; 93458; 99152; 99291; C1725; C1769; C1874; C9606; G0378; J0171; J0282; J0461; J1200; J1644; J2001; J2250; J2310; J2405; J3010; J7030; Q9967